=== PATIENT | male | born 1950 | race Caucasian/White ===

== ENCOUNTER 2017-10-24 14:21 | Outpatient (CLI) | payer MEDICARE, BC ==
[2017-10-24 16:11] LABS: #Basophils 0.1 thou/uL (0.0-0.2); #Eosinphils 0.1 thou/uL (0.0-0.7); #Lymphocytes 1.8 thou/uL (1.20-3.40); #Monocytes 0.3 thou/uL (0.11-0.59); #Neutrophils 3.3 thou/uL (1.40-6.50); %Basophils 1.4 % (0.0-1.0); %Eosinophils 2.4 % (0.0-10.0); %Lymphocytes 31.5 % (21.0-51.0); %Monocytes 6.1 % (0.0-10.0); %Neutrophils 58.6 % (42.0-75.0); Hemoglobin 14.8 g/dL (14.0-18.0); Mean Corpuscular HGB CONC 32.2 g/dL (32.0-36.0); Mean Corpuscular Hemoglobin 31.1 pg (27.0-31.0); Mean Corpuscular Volume 96.5 fl (80.0-94.0); Mean Platelet Volume 7.9 fL (7.4-10.4); Platelet Count 179 thou/uL (130-400); RBC Distribution Width 13.1 % (11.5-14.5); Red Blood Cell (RBC) Count 4.75 mill/uL (4.70-6.10); White Blood Cell (WBC) Count 5.6 thou/uL (4.8-10.8)
[2017-10-24 16:38] LABS: Anion Gap 13 mmol/L (10-20); BUN (Urea Nitrogen) 17 mg/dL (8.4-25.7); Calc. Creatinine Clearance 0 mL/min (70-130); Carbon Dioxide 23 mmol/L (23-31); Chloride 108 mmol/L (98-107); Estimated GFR-MDRD Greater than 90; Glucose 75 mg/dL (80-115); Potassium 3.8 mmol/L (3.5-5.1); Sodium 140 mmol/L (136-145)
== END 2017-10-24 14:22 | disposition home or self-care (01) ==
LOC: LABBT 14:21
PROVIDERS: ATTEND Orthopaedic Surgery Hand Surgery
DX: Z01.818 Encounter for other preprocedural examination (principal); M72.0 Palmar fascial fibromatosis [Dupuytren]
CPT/HCPCS: 80048; 85025; 85730; 93005; 93010

== ENCOUNTER 2017-11-06 08:13 | Day surgery (SDC) | payer MEDICARE, BC ==
[2017-10-24 14:34] VITALS: BMI 38.0
[2017-11-06] MEDS ORDERED: Lidocaine 1% PF 5 ML VIAL ONE (12:55)
[2017-11-06] MEDS ORDERED: Ketorolac Tromethamine 30 MG/ML VIAL ONE (12:55)
[2017-11-06] MEDS ORDERED: Ondansetron HCl/PF 4 MG/2 ML Vial ONE (12:55)
[2017-11-06] MEDS ORDERED: ePHEDrine/0.9% NaCl/PF SYRINGE 50 mg/10 ml ONE (12:55)
[2017-11-06] MEDS ORDERED: Propofol 200 MG/20 ML VIAL ONE (12:55)
[2017-11-06] MEDS ORDERED: Fentanyl 100 MCG/2 ML VIAL ONE (12:58)
[2017-11-06] MEDS ORDERED: Midazolam HCl 2 mg/2 ml Vial ONE (12:58)
[2017-11-06] MEDS ORDERED: Bacitracin Zinc Ointment 30 gm TUBE ONE (13:04)
[2017-11-06] MEDS ORDERED: Bupivacaine PF 0.5% 30 ML VIAL ONE (13:04)
[2017-11-06] MEDS ORDERED: CEFAZOLIN/Water 2 GM/20 ML SYRINGE ONE (13:38)
[2017-11-06] MEDS ORDERED: Thrombin 5000 UNITS/5 ML VIAL ONE (14:17)
--- NOTE | 2017-11-07 06:28 | OP ---
DATE OF SURGERY: 11/06/2017 PREOPERATIVE DIAGNOSIS: Right ring finger, middle finger and index finger Dupuytren's contracture. POSTOPERATIVE DIAGNOSES: Very small but thick cord on the index finger, but a very thick cord causin g great contraction of 80 degrees at the MP joint and 4 degrees PIP joint of the middle finger. Ther e is also clot, would both radial and ulnar nerves and almost a candy cane configuration crossing the midline to the opposite side over each other in this configuration. PROCEDURES PERFORMED: 1. Right ring finger radial digital nerve neuroplasty. 2. Right ring finger ulnar digital nerve neuroplasty. 3. Right ring finger, middle finger and index finger subtotal palmar fasciectomy. SPECIMENS: Dupuytren's cord. TOURNIQUET TIME: 93 minutes. ESTIMATED BLOOD LOSS: 10 mL. SURGEON: Patel Cleveland MD ANESTHESIA: General LMA technique augmented with 25 mL of 0.5% Marcaine block. No epinephrine. DESCRIPTION OF PROCEDURE: After the patient had successful anesthesia listed above, because he was o n long-term anticoagulation, he had limb prepped and draped. Timeout was accomplished, it was approp riate. We then first approached the index finger with a Micky incision approximately 2.5 to 3 cm long, foll owed the digital nerves proximal to it, did a neuroplasty and them from the overlying mass, which was a very thick short cord with a large dimple. We removed the mass. The neurovascular bund le was intact. This wound was left open. Then, we approached the ring finger and middle finger cord, but the ring f anya was most involved, so zigzag incision was centered on this cord. Beginning proximally, we sepa rated the cord from soft tissue. Once the cord was exposed, then we went back to the proximal aspect , neurovascular bundles and followed it and it was approximately at the level of the greate st contracture, just over the MP joint where the radial digital nerve went midline to the ulnar side crossing superficial to the ulnar digital nerve and both of them crossed over each other at this poin t. We then performed very careful neuroplasty slowing at this point, so magnification would allow us to maintain the neurovascular bundle, which we did without complication. A completely charito rovascular bundle from the cord, the cord which had its terminal end on the ring finger at just distal to the A3 kyle and it. We then dissected it back carefully all way to transv erse carpal ligament distal edge. Once we , tourniquet was deflated. Hemostasis obtained. We had excellent circulation, all digits were pink equally and had the same 1 second refill. Placed Celestone over the bed, closed both wounds using the Micky incision to close to cover any defect cr eated by the skin over the central middle finger and ring finger and index finger closed well with th e same 4-0 nylon interrupted simple pattern. Bulky dressing was applied. He had a total injection o f 25 mL with 10 given before and 15 after. He left the operating room with pink digits and the finge rs extended with a palmar splint 0 at all joints.
== END 2017-11-06 19:03 | disposition home or self-care (01) ==
LOC: SDC 08:13
PROVIDERS: ATTEND Orthopaedic Surgery Hand Surgery
PROC: 01Q60ZZ Repair Radial Nerve, Open Approach (ICD-10-PCS; principal; 2017-11-06)
PROC: 01Q40ZZ Repair Ulnar Nerve, Open Approach (ICD-10-PCS; 2017-11-06)
PROC: 0JNJ0ZZ Release Right Hand Subcutaneous Tissue and Fascia, Open Approach (ICD-10-PCS; 2017-11-06)
PROC: 0LN70ZZ Release Right Hand Tendon, Open Approach (ICD-10-PCS; 2017-11-06)
DX: M72.0 Palmar fascial fibromatosis [Dupuytren] (principal); Z98.1 Arthrodesis status; Z98.84 Bariatric surgery status; Z90.49 Acquired absence of other specified parts of digestive tract; Z98.890 Other specified postprocedural states
CPT/HCPCS: 88304; J2250; J3010; S0020

== ENCOUNTER 2018-01-26 20:47 | Observation (INO) | payer MEDICARE, BC ==
[~2018-01-26 20:47] MED LIST: ISOVUE-370 76%-LOCM 1 ML ONE
[2018-01-26] MEDS ORDERED: Morphine 4 MG/ML VIAL ONE (21:17)
--- NOTE | 2018-01-26 21:24 | RAD ---
SINGLE VIEW OF THE CHEST: 01/26/18 COMPARISON: 11/18/16 HISTORY: Chest pain status post fall. FINDINGS: Single view of the chest shows a normal sized cardiomediastinal silhouette. There is no evidence of c onsolidation, mass, or pleural effusion. The bones are unremarkable. IMPRESSION: No evidence of acute cardiopulmonary disease. POS: [facility]
[2018-01-26 21:35] LABS: #Eosinphils 0.1 thou/uL (0.0-0.7); #Lymphocytes 1.2 thou/uL (1.20-3.40); #Monocytes 0.7 thou/uL (0.11-0.59); %Basophils 0.4 % (0.0-1.0); %Eosinophils 0.6 % (0.0-10.0); %Lymphocytes 13.4 % (21.0-51.0); %Monocytes 7.6 % (0.0-10.0); Hemoglobin 14.6 g/dL (14.0-18.0); Mean Corpuscular HGB CONC 32.8 g/dL (32.0-36.0); Mean Corpuscular Hemoglobin 30.6 pg (27.0-31.0); Mean Corpuscular Volume 93.2 fl (80.0-94.0); Mean Platelet Volume 7.5 fL (7.4-10.4); Platelet Count 163 thou/uL (130-400); RBC Distribution Width 13.1 % (11.5-14.5); Red Blood Cell (RBC) Count 4.76 mill/uL (4.70-6.10)
[2018-01-26 21:42] LABS: INR-International Normal Ratio 1.2; PTT 26.4 SEC (22.9-36.1); Prothrombin Time 15.6 SEC (12.0-14.7)
[2018-01-26 21:54] LABS: Anion Gap 14 mmol/L (10-20); BUN (Urea Nitrogen) 21 mg/dL (8.4-25.7); Calc. Creatinine Clearance 0 mL/min (70-130); Calcium 8.7 mg/dL (7.8-10.44); Carbon Dioxide 23 mmol/L (23-31); Chloride 107 mmol/L (98-107); Estimated GFR-MDRD 70; Glucose 148 mg/dL (80-115); Sodium 140 mmol/L (136-145)
--- NOTE | 2018-01-26 22:48 | CT ---
CT OF THE CHEST WITH CONTRAST CT OF THE THORACIC SPINE WITH CONTRAST 01/26/18 HISTORY: Patient fell at a football game and landed on the right side. The patient complains of right rib pain and shortness of breath after the fall. Patient also reports back pain. TECHNIQUE: 1. Multiple contiguous axial images were obtained in a CT of the chest with contrast. Coronal re formats were performed. 2. A limited CT of the thoracic spine was performed. Sagittal and coronal reformats were created based off images obtained in the chest CT. FINDINGS: CT CHEST: There are minimally displaced fractures of the right posterior 7th and 8th ribs. No underlying pneumo thorax or pleural effusion are seen. No other rib fractures are present. No focal infiltrates or susp icious masses are seen in the lungs. The heart is normal in size without focal cardiac abnormality. N o hilar or mediastinal lymphadenopathy are seen. Postsurgical changes are seen in the stomach. There are hypodensities in the left kidney measuring up to 2.1 cm in size, which likely represents cysts. The other visualized subdiaphragmatic structures a re unremarkable. Degenerative changes are seen in the spine. The chest wall soft tissues are unremarkable. Limited CT of the thoracic spine. There are multiple bridging osteophytes throughout the thoracic spi ne consistent with DISH. There is no evidence of acute fracture or subluxation. IMPRESSION: 1. Right posterior 7th and 8th rib fractures with underlying intrathoracic abnormality. 2. No evidence of acute osseous abnormality of the thoracic spine. POS: [facility]
[2018-01-27] MEDS ORDERED: Acetaminophen 1,000 MG in Premix Bag 1 BAG IVPB SCH (02:06)
[2018-01-27] MEDS ORDERED: traMADol HCl 50 MG TAB PO PRN (02:06)
[2018-01-27] MEDS ORDERED: Dextrose 50% Abboject 50 ML SYRINGE SLOW IVP PRN (02:06)
[2018-01-27] MEDS ORDERED: Cyclobenzaprine 10 MG TAB PO PRN ×2 (02:06→02:30)
[2018-01-27] MEDS ORDERED: Ketorolac Tromethamine 15 MG/ML VIAL IVP SCH (02:06)
[2018-01-27] MEDS ORDERED: Ondansetron HCl/PF 4 MG/2 ML Vial IVP PRN (02:06)
[2018-01-27] MEDS ORDERED: Dextrose 5% in Water 1,000 ML IV PRN (02:06)
[2018-01-27] MEDS ORDERED: Ondansetron ODT 4 MG TAB PO PRN (02:06)
[2018-01-27] MEDS ORDERED: Rib Fracture Protocol PO SCH (02:06)
[2018-01-27] MEDS ORDERED: hydrALAZINE 20 MG/ML VIAL SLOW IVP PRN (02:06)
[2018-01-27] MEDS ORDERED: Acetaminophen 500 MG TAB PO PRN (02:06)
[2018-01-27] MEDS ORDERED: traMADol HCl 50 MG TAB PO SCH (02:06)
[2018-01-27 04:51] LABS: #Eosinphils 0.1 thou/uL (0.0-0.7); #Lymphocytes 1.5 thou/uL (1.20-3.40); #Monocytes 0.6 thou/uL (0.11-0.59); #Neutrophils 3.6 thou/uL (1.40-6.50); %Basophils 0.6 % (0.0-1.0); %Eosinophils 1.4 % (0.0-10.0); %Lymphocytes 26.5 % (21.0-51.0); %Monocytes 9.5 % (0.0-10.0); %Neutrophils 61.9 % (42.0-75.0); Hemoglobin 13.4 g/dL (14.0-18.0); Mean Corpuscular HGB CONC 33.3 g/dL (32.0-36.0); Mean Corpuscular Hemoglobin 31.5 pg (27.0-31.0); Mean Corpuscular Volume 94.5 fl (80.0-94.0); Mean Platelet Volume 8.2 fL (7.4-10.4); Platelet Count 150 thou/uL (130-400); Red Blood Cell (RBC) Count 4.26 mill/uL (4.70-6.10); White Blood Cell (WBC) Count 5.8 thou/uL (4.8-10.8)
[2018-01-27 05:08] LABS: Anion Gap 7 mmol/L (10-20); BUN (Urea Nitrogen) 19 mg/dL (8.4-25.7); Calc. Creatinine Clearance 0 mL/min (70-130); Calcium 8.5 mg/dL (7.8-10.44); Carbon Dioxide 28 mmol/L (23-31); Chloride 108 mmol/L (98-107); Estimated GFR-MDRD Greater than 90; Glucose 105 mg/dL (80-115); Sodium 139 mmol/L (136-145)
[2018-01-27] MEDS ORDERED: Ibuprofen 800 MG TAB PO SCH ×2 (06:00→09:00)
[2018-01-27] MEDS ORDERED: Levothyroxine Sodium 100 MCG TAB PO SCH (06:00)
--- NOTE | 2018-01-27 06:01 | HP ---
DATE OF ADMISSION: 01/27/2018 REQUESTING PHYSICIAN: Dr. Smith. ATTENDING SURGEON: Dr. Faye. HISTORY OF PRESENT ILLNESS: The patient is a 67-year-old man who was at the [employer] this afternoon when he was in the bleachers and tripped over a small lip of concrete on a ramp falling on his right side. The patient struck his right elbow and right chest on the ground. Denies hitting his head. No loss of consciousness, did not have any shortness of breath, dizziness or any syncopal type symptoms prior to his falling. The patient went home for a very short period of time; when the pain increased, he came to the emergency room and underwent evaluation and examination and o n CT, it was noted to have 2 posterior rib fractures, at which time we were asked to admit the patien t for pain control. ALLERGIES: None. CURRENT MEDICATIONS: Primidone, Synthroid, Avodart, Flomax, meloxicam, Travatan ophthalmic drops, Xa relto and Cosopt ophthalmic drops. PAST MEDICAL HISTORY: Hypertension, hypothyroidism, recurrent "blood clots." PAST SURGICAL HISTORY: Bone graft of left wrist, thoracic spine diskectomy, melanoma excision from l eft shoulder, detached retina repair of left eye, cataract surgery and lens implant on the left eye, IVC filter placement, permanent cholecystectomy, gastric bypass, tonsillectomy, left hip replacement, bilateral knee replacement. SOCIAL HISTORY: Patient denies drug, alcohol or tobacco use. The patient lives at home with his wif e. FAMILY MEDICAL HISTORY: Hypertension. REVIEW OF SYSTEMS: Ten point review of systems is negative as otherwise stated. PHYSICAL EXAMINATION: VITAL SIGNS: Blood pressure 111/60, heart rate 70, respirations at 16, oxygen saturation 97% on room air, temperature is 98.7. GENERAL: The patient is resting comfortably in bed. He is alert and oriented x3. Winston coma scal e is 15. HEENT: Head is normocephalic, atraumatic. Eyes: Extraocular motions intact. PERRLA bilaterally. There is definite change in the left compared to the right, consistent with his surgical history. Ea rs, atraumatic without discharge. Nose is atraumatic without discharge. Oropharynx is clear. NECK: Nontender. Trachea is midline. No JVD. CHEST: Clear to auscultation with moderate inspiratory and expiratory effort which the patient state s that his pain increases when he takes a deep breath. HEART: Regular rate and rhythm. ABDOMEN: Soft, flat, nontender with active bowel sounds. Pelvis is stable. EXTREMITIES: Neurovascularly intact x4. Right elbow shows small abrasion on the lateral aspect. BACK: Nontender to midline, but does have tenderness to palpation on the right side consistent with his 2 posterior rib fractures. LABORATORY DATA: White blood cell count 9.0, hemoglobin 14.6, hematocrit 44.4, platelets 163. Sodiu m 140, potassium 4.0, chloride 107, CO2 is 23, BUN 21, creatinine 1.05, glucose 148, PTT 26, PT 16, I NR 1.2. RADIOGRAPHS: AP chest shows no evidence of acute cardiopulmonary disease. CT of the chest and T spi ne with IV contrast shows right posterior 7th and 8th rib fractures without underlying intrathoracic abnormality and no acute evidence of abnormality of the thoracic spine. ASSESSMENT AND PLAN: 1. Status post ground-level fall. 2. Right 7th and 8th rib fractures. 3. Pain secondary to acute trauma. 4. History of hypercoagulable state. 5. History of hypertension. 6. History of recurrent urinary retention. Plan will be to admit the patient to surgical floor for observation, pain control. We will resume al l of his home medications. Pulmonary toilet, gastritis, mechanical thrombosis prophylaxis. The eval uation examination, radiographic and laboratory findings will be discussed with Dr. Faye after thi s dictation.
[2018-01-27] MEDS: Acetaminophen 500 MG TAB PO SCH ×2 (06:26→12:14)
[2018-01-27] MEDS: traMADol HCl 50 MG TAB PO SCH ×2 (06:27→12:15)
[2018-01-27 06:57] VITALS: BMI 39.2
[2018-01-27] MEDS ORDERED: Famotidine 20 MG TAB PO SCH (09:00)
[2018-01-27] MEDS ORDERED: Dorzolamide HCl/Timolol Maleate 2%/0.5% Ophth Soln 10 ml Bottle R EYE SCH ×2 (09:00)
[2018-01-27] MEDS ORDERED: Rivaroxaban 10 MG TAB PO SCH (09:00)
[2018-01-27] MEDS ORDERED: Gabapentin 300 MG CAP PO SCH (09:00)
[2018-01-27] MEDS ORDERED: Tamsulosin HCl 0.4 MG CAP PO SCH (09:00)
[2018-01-27] MEDS ORDERED: Dutasteride 0.5 MG CAP PO SCH (09:00)
[2018-01-27] MEDS: Primidone 250 MG TAB PO SCH ×2 (09:38→12:15)
--- NOTE | 2018-01-27 10:00 | RAD ---
AP VIEW CHEST: HISTORY: A 67-year-old with a history of fall and chest pain. FINDINGS: AP view chest demonstrates mild pulmonary vascular congestion. No evidence of effusions, pneumonia, or pneumothorax seen. IMPRESSION: Unremarkable AP view chest. POS: [facility]
[2018-01-27 11:56] VITALS: BP 121/73; TEMP 98
[2018-01-27] MEDS ORDERED: Latanoprost 0.005% Ophth Soln 2.5 ml Bottle R EYE SCH (21:00)
--- NOTE | 2018-01-27 21:20 | DIS ---
DATE OF ADMISSION: 01/27/2018 DATE OF DISCHARGE: 01/27/2018 ADMISSION DIAGNOSES: 1. Status post ground level fall. 2. Right posterior 7th and 8th rib fractures. 3. Pain secondary to acute trauma. 4. Multiple comorbidities to include blood thinner use. CONSULTATIONS: None. PROCEDURES: None. SUMMARY: The patient is a 67-year-old man who was at the [email or web address] when he tripped over a ramp and fell on his right side. The patient was able to tolerate sitting through the game and then went home and when he sneezes, he had increased pain and was brought to the Emergency Department and he underw ent evaluation and examination and was noted to have the above injuries. We were asked to admit the patient for pain control overnight. He did extremely well this morning. He was able to draw 3000 on his incentive spirometry. His pain was easily controlled with nonnarcotic pain medicine and one dos e of tramadol. Chest x-ray in the morning was unremarkable. Labs were stable. The patient was able to be discharged home and will follow up with the trauma clinic in 2 weeks or sooner as needed.
--- NOTE | 2018-01-28 08:43 | ADD-HP ---
ADDENDUM To the addendum dictated by Fausto Borja, Trauma PA. For full details, please see his H and P the details of which I have personally confirmed. In summar y, Mr. Shook is a 67-year-old man who tripped on a ramp falling onto his right chest and elbow. No loss of consciousness or other injuries. He was noted to have 2 posterior rib fractures and was admi tted for pain control, but was refusing pain medication from the nurses last night. This morning, he is feeling good and breathing well. He is using his incentive spirometer as instructed. PHYSICAL EXAMINATION: GENERAL: He is moving air well with equal breath sounds bilaterally. Vital signs are normal. HEART: Regular, without murmurs, rubs or gallops. CHEST: He is tender to palpation in the right chest and has an abrasion on his elbow, but no other s ignificant findings on exam. LABORATORY DATA: No significant abnormalities on his lab work. ASSESSMENT: Right posterior rib fractures, refusing IV medication and breathing well with good room air O2 sats. He will be discharged home with instructions to follow up in the trauma clinic as miguel ángel iraheta, signs and symptoms of pneumothorax were discussed with the patient. He knows to seek immediate he lp if these occur.
== END 2018-01-27 14:44 | disposition home or self-care (01) ==
LOC: ERS 20:47 → SURG A 01-27 01:05
PROVIDERS: ADMIT Surgery; ATTEND Surgery
DX: S22.41XA Multiple fractures of ribs, right side, initial encounter for closed fracture (principal); G89.11 Acute pain due to trauma; W10.2XXA Fall (on)(from) incline, initial encounter; I10 Essential (primary) hypertension; E03.9 Hypothyroidism, unspecified; Z79.01 Long term (current) use of anticoagulants; Z79.899 Other long term (current) drug therapy; Z98.84 Bariatric surgery status; Z98.42 Cataract extraction status, left eye; Z96.1 Presence of intraocular lens; Z96.653 Presence of artificial knee joint, bilateral; Z96.642 Presence of left artificial hip joint; Z95.828 Presence of other vascular implants and grafts; Z90.49 Acquired absence of other specified parts of digestive tract; Z90.89 Acquired absence of other organs; Z98.890 Other specified postprocedural states
CPT/HCPCS: 71045 ×2; 71260; 80048 ×2; 85025 ×2; 85610; 85730; 86850; 86900; 86901; 93005; 96374; 97139; 99285; G0378; 36415; J2270

== ENCOUNTER 2019-03-17 13:38 | Outpatient (CLI) | payer MEDICARE, BC ==
--- NOTE | 2019-03-17 15:12 | RAD ---
RADIOGRAPH LUMBAR SPINE 2 VIEWS: DATE: 03/17/2019 HISTORY: 68-year-old male with lumbar spondylosis, back pain, fall from horse, trauma FINDINGS: AP and lateral standing views 5 lumbar-type vertebrae. Minimal anterior wedging of L2, L3, probably chronic. Flowing ventral osteop hytes at lower thoracic spine and upper lumbar spine consistent with DISH. High-grade DJD of facet joints at lower levels. IVC filter. Mild to moderate disc space narrowing at L4-5 and L5-S1. IMPRESSION: Lumbar spondylosis with high-grade lower level facet osteoarthrosis
--- NOTE | 2019-03-17 15:19 | CT ---
CT lumbar spine noncontrast: 03/17/2019 HISTORY: 68-year-old male with lumbar spondylosis, chronic low back pain 5 lumbar-type vertebrae. 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 Otherwise, vertebral body heights are maintained. Flowing ventral osteophytes at lower thoracic spine and upper lumbar spine consistent wit h DISH. No high-grade scoliosis. There is an IVC filter. T12-L1: No central or neural foraminal stenosis L1-2: No central or neural foraminal stenosis L2-3: Mild to moderate right facet DJD. Moderate left facet DJD. No high-grade central stenosis. No h igh-grade neural foraminal stenosis. Disc space maintained. L3-4: Degenerative retrolisthesis of L3 on L4. Disc space maintained. Diffuse disc bulge. Mild to mod erate ligamentum flavum thickening. Moderate left facet DJD. Severe right facet DJD. Mild to moderate central stenosis. Moderate bilateral neural foraminal stenosis. L4-5: Disc space maintained. Moderate ligamentum flavum thickening. Severe right degenerative facet h ypertrophy. Severe left degenerative facet hypertrophy, less than on the right. Severe central spinal canal stenosis. Diffuse disc bulge. Severe left neural foraminal stenosis. Moderate to severe right neural foraminal stenosis. L5-S1: Disc space maintained. Severe bilateral facet degenerative hypertrophy. No central stenosis. M ild to moderate left neural foraminal stenosis. No right-sided neural foraminal stenosis. IMPRESSION: 1. Lumbar spondylosis, including multilevel severe facet osteoarthrosis. 2. Severe central spinal canal stenosis at L4-5. 3. High-grade neural foraminal stenosis at lower levels, worst on the left at L4-5, severe.
== END 2019-03-17 13:39 | disposition home or self-care (01) ==
LOC: BICCT 13:38
PROVIDERS: ATTEND Family Medicine
DX: M47.816 Spondylosis without myelopathy or radiculopathy, lumbar region (principal); M51.9 Unspecified thoracic, thoracolumbar and lumbosacral intervertebral disc disorder; M48.061 Spinal stenosis, lumbar region without neurogenic claudication
CPT/HCPCS: 72100; 72131

== ENCOUNTER 2019-04-20 15:16 | Inpatient (IN) | payer MEDICARE, BC ==
--- NOTE | 2019-04-20 15:57 | RAD ---
RADIOGRAPH CHEST 1 VIEW: DATE: 04/20/2019 TIME: 3:46 PM HISTORY: 68-year-old male with traumatic right chest pain due to fall. COMPARISON: 01/27/2018 FINDINGS: There is a new finding of right infrahilar very irregularly-shaped approximately 5 cm opacity. The ri ght upper lobe and the left lung are clear. No cardiomegaly or pneumothorax. No effacement of lateral costophrenic angles. No pneumothorax. IMPRESSION: Right infrahilar masslike opacity: Pneumonia versus primary lung cancer.
[2019-04-20 16:06] LABS: Hemoglobin 14.8 g/dL (14.0-18.0); Mean Corpuscular HGB CONC 32.7 g/dL (32.0-36.0); Mean Corpuscular Volume 94.8 fL (78.0-98.0); Mean Platelet Volume 9.2 fL (7.4-10.4); Platelet Count 166 thou/uL (130-400); RBC Distribution Width 14.8 % (11.5-14.5); Red Blood Cell (RBC) Count 4.78 mill/uL (4.70-6.10); White Blood Cell (WBC) Count 20.6 thou/uL (4.8-10.8)
[2019-04-20 16:17] LABS: Band 21 % (5-11); Lymphocytes 1 % (21-51); MDiff Complete? YES; Monocytes 2 % (0-10); Neutrophil 76 % (42-75); Platelet Morphology Comment Appears Adequate; RBC Morphology Normal
[2019-04-20 16:23] LABS: Bacteria/HPF 1+ HPF (None Seen); Bilirubin Negative (Negative); Blood, Urine Negative (Negative); Clarity Clear (Clear); Glucose, Urine (Dipstick) Normal (Negative); Leukocyte Negative Leu/uL (Negative); Nitrite Negative (Negative); Protein, Urine (Dipstick) 30 mg/dL (Neg-Trace); RBC/HPF 0-3 HPF (0-3); Squamous Epithelial 0-3 HPF (0-3); Urobilinogen Normal mg/dL (Less than 2); WBC/HPF 0-3 HPF (0-3)
[2019-04-20] MEDS ORDERED: Piperacillin/Tazobactam 4.5 GM VIAL ONE (17:04)
[2019-04-20] MEDS ORDERED: Fentanyl 100 MCG/2 ML VIAL ONE (17:04)
[2019-04-20] MEDS ORDERED: Sodium Chloride 0.9% 100 ML ONE (17:04)
[2019-04-20 17:14] LABS: Albumin 3.7 g/dL (3.4-4.8)
[2019-04-20 17:15] LABS: Calcium 8.6 mg/dL (7.8-10.44); Chloride 106 mmol/L (98-107); Potassium 4.2 mmol/L (3.5-5.1); Sodium 139 mmol/L (136-145)
[2019-04-20 17:16] LABS: Glucose 125 mg/dL (80-115)
[2019-04-20 17:17] LABS: Protein, Total 6.7 g/dL (5.8-8.1)
[2019-04-20 17:18] LABS: Anion Gap 14 mmol/L (10-20); Bilirubin, Total 0.6 mg/dL (0.2-1.2); Carbon Dioxide 23 mmol/L (23-31)
[2019-04-20 17:19] LABS: Alkaline Phosphatase 122 U/L (40-150)
[2019-04-20 17:20] LABS: BUN (Urea Nitrogen) 26 mg/dL (8.4-25.7); Calc. Creatinine Clearance 0 mL/min (70-130); Estimated GFR-MDRD 71
[2019-04-20 17:21] LABS: AST (SGOT) 43 U/L (5-34)
[2019-04-20 17:22] LABS: ALT (SGPT) 83 U/L (8-55); Lipase 15 U/L (8-78)
--- NOTE | 2019-04-20 19:01 | CT ---
Exam: CT angiogram of the chest HISTORY: Chest pain. COMPARISON: 11/18/2016 TECHNIQUE: CT angiogram of the chest is performed in the axial plane. Three-dimensional reformatted i mages are submitted for interpretation FINDINGS: Mediastinum: No mass, lymphadenopathy or hematoma. HEART: Normal size. No significant pericardial fluid. Aorta: Suboptimal evaluation due to timing of contrast bolus. No aneurysm, dissection or periaortic f at stranding Upper solid abdominal viscera: Exophytic, intraparenchymal and pelvic cyst in the left kidney, incomp letely evaluated. There is evidence of previous bariatric surgical change. Trachea and central bronchi: Patent Pleural spaces: No significant pericardial fluid. Lung parenchyma: Multifocal groundglass opacities in the right upper lobe, right lower lobe and middl e lobe. No significant groundglass opacification in the left lung. Pneumothorax: None Osseous structures: No lytic or blastic lesions multisegment osteophyte formation suggesting DISH Pulmonary arteries: Adequate contrast opacification pulmonary arterial system to the level of lobar a rteries. No filling defect to suggest pulmonary embolism. Limited evaluation of the segmental and subsegmental arteries. There is extensive venous collaterals in the left axilla left neck which may be secondary to thrombos is of the left subclavian vein. Limited evaluation on this examination. IMPRESSION: 1. Probably right lung groundglass opacities which may be due to edema or infiltrate. 2. No evidence of pulmonary artery embolism to the level of the lobar arteries. Limited evaluation of the segmental and subsegmental arteries due to technique 3. Extensive venous collaterals in the right hemithorax and right neck which may be due to narrowing or occlusion of the right subclavian vein, incompletely evaluated. Nonemergent right upper extremity venogram can be performed. Transcribed Date/Time: 04/20/2019 7:27 PM
[2019-04-20] MEDS ORDERED: Azithromycin 250 MG TAB ONE (19:13)
[2019-04-20 20:34] LABS: Lactic Acid 1.7 mmol/L (0.5-2.2)
[2019-04-20] MEDS ORDERED: Acetaminophen 325 MG TAB PO PRN ×2 (21:15→22:06)
[2019-04-20] MEDS ORDERED: Ondansetron PF 4 MG/2 ML Vial IVP PRN (22:06)
[2019-04-20] MEDS ORDERED: Bisacodyl 10 MG SUPP PR PRN (22:06)
[2019-04-20] MEDS ORDERED: Guaifenesin DM 100-10/5 ML UDCUP PO PRN (22:06)
[2019-04-20] MEDS ORDERED: Senokot S 8.6-50 MG TAB PO PRN (22:06)
[2019-04-20 23:00] LABS: INR-International Normal Ratio 1.5; PTT 32.1 SEC (22.9-36.1); Prothrombin Time 17.6 SEC (12.0-14.7)
[2019-04-20] MEDS: cefTRIAXone\\ROCEPHIN 1 GM in Sodium Chloride 0.9% 100 ML IVPB SCH (23:00)
[2019-04-21 00:39] VITALS: BMI 41.2
--- NOTE | 2019-04-21 02:21 | HP ---
REASON FOR ADMISSION: Sepsis, right lung pneumonia. HISTORY OF PRESENTING ILLNESS: The patient gives history of having tripped and falling while he was trying to walk his dog on Sunday. He fell and hit his right side of his chest. Last night around 1:00 am, the patient started to have intractable cough. took his temperature, it was 101.6 yesterday morning. Has no altered sputum. The patient states he has had multiple pneumonias in his life and has no history of asthma or COPD. Last pneumonia was in October of this year. 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 No complaints of palpitations, PND, or orthopnea. He normally ambulates by himself. PAST MEDICAL AND SURGICAL HISTORY: History of protein S deficiency with history of multiple clots in the legs and PE as well. The last clot he had was in October of 2016 with bilateral lower leg DVTs. Bilateral knee replacement, left hip replacement. Last stress test was one year back with Dr. Meredith and was negative. History of gastric bypass, hypertension, and has had cervical spine surgery, melanoma removed from left shoulder. Retinal detachment, left eye with laser repair. Cataract surgeries. History of IVC filter, cholecystectomy, gastric bypass in 2007, tonsillectomy, hypothyroidism. History of seizure disorder from childhood, on primidone. CURRENT MEDICATIONS: The patient is on: 1. Primidone 1000 mg daily. 2. Synthroid 75 mcg daily. 3. Avodart 0.5 mg p.o. daily. 4. Flomax 0.4 mg p.o. daily. 5. Xarelto 20 mg daily. 6. Meloxicam 15 mg p.o. daily. 7. Metoprolol extended release 100 mg daily. 8. Metformin extended release 500 mg p.o. 2 tablets daily. 9. Colestipol 1 g twice daily. 10. Travatan eye drops to the right eye at bedtime. 11. Cosopt 1 drop to the right eye 2 times daily. 12. Multivitamin one tablet daily. ALLERGIES: NO KNOWN DRUG ALLERGIES. PERSONAL HISTORY: Does not abuse alcohol or drugs. No history of smoking. He lives with his . FAMILY HISTORY: Multiple family members with protein S deficiency, it is mostly on the maternal side. Mother is living, she is 88 years old and is in retirement at present. Father at the age of 72 years, he has had history of lymphoma and coronary artery disease. Two brothers and 3 children all have history of likely protein S deficiency and blood clots. CODE STATUS: Full. Power of power of estate attorney is his . REVIEW OF SYSTEMS: CONSTITUTIONAL: Negative for weight loss or gain, ability to conduct usual activities. SKIN: Negative for rash, itching. EYES: Negative for double vision, pain. ENT/MOUTH: Negative for nose bleeding, neck stiffness, pain, tenderness. CARDIOVASCULAR: Negative for palpitations, dyspnea on exertion, orthopnea. RESPIRATORY: Negative for shortness of breath, wheezing, cough, hemoptysis, fever or night sweats. GASTROINTESTINAL: Negative for poor appetite, abdominal pain, heartburn, nausea , vomiting, constipation, or diarrhea. GENITOURINARY: Negative for urgency, frequency, dysuria, nocturia. MUSCULOSKELETAL: Negative for pain, swelling. NEUROLOGIC/PSYCHIATRIC: Negative for anxiety, depression. ALLERGY/IMMUNOLOGIC: Negative for skin rash, bleeding tendency. PHYSICAL EXAMINATION: GENERAL: The patient is a 68-year-old male, who is currently not in any acute distress. VITAL SIGNS: Blood pressure 92/58 on arrival, pulse is 98 per minute, respiratory rate 20 per minute, temperature 99.4 degrees Fahrenheit on arrival, saturating 97% on room air. NECK: Supple. No elevated JVD. HEENT: Eyes; extraocular muscles intact. Pupils reacting to light. Oral cavity, mucous membranes are dry. No exudates or congestion. CARDIOVASCULAR: S1 and S2 heard. Regular rhythm. RESPIRATORY: Air entry 1+ bilateral. There are coarse rales on the right half of lung field. No wheezes. ABDOMEN: Soft. Bowel sounds heard. No tenderness, rigidity, or guarding. EXTREMITIES: No peripheral edema or calf tenderness. VASCULAR SYSTEM: Peripheral pulses 1+ bilateral. No ischemic ulcerations or gangrene. CENTRAL NERVOUS SYSTEM: No gross focal motor deficits noted. The patient is alert, awake, oriented well. PSYCHIATRIC: The patient's mood is euthymic. No hallucinations or delusions. LABORATORY DATA: White count of 20, H and H 14 and 45, platelet count is 166 with 76% neutrophils. PT/INR 17 and 1.5, PTT 32, BUN 26, creatinine 1.0, serum glucose 125. Lactic acid 2.3. AST/ALT 43 and 83, total bilirubin 0.6, alkaline phosphatase 122. Troponin x1 less than 0.01. Albumin is 3.7. CT angio chest done shows right lung ground-glass opacities which may be due to edema or infiltrate. No evidence of PE seen. Extensive venous collaterals in the right hemithorax and right neck which may be due to narrowing or occlusion of right subclavian vein. EKG done shows sinus tach at 104 beats per minute with poor R-wave progression. CLINICAL IMPRESSION AND PLAN: The patient will be admitted to medical floor for right lung pneumonia. The patient is also on Xarelto and has had a history of fall on Sunday and it is unclear if he has pulmonary injury with alveolar hemorrhage versus lung contusion. We will obtain consultation with Dr. Ortega for Pulmonology. 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 He will be on ceftriaxone and Zithromax. DuoNeb q.6 hourly. We will continue his home dose of Flomax, multivitamin, levothyroxine, latanoprost, Avodart, dorzolamide with timolol eye drops as before. Blood and urine cultures will be obtained. We will continue to closely monitor him on medical floor. If the patient were to worsen, he will be transferred to [facility]. The code status is full. Power of estate attorney is his . Please note I have seen and examined patient on 2018. Job ID: [id number]
[2019-04-21] MEDS: Levothyroxine Sodium 100 MCG TAB PO SCH (05:37)
[2019-04-21 05:38] LABS: #Eosinphils 0.2 thou/uL (0.0-0.7); #Lymphocytes 1.6 thou/uL (1.20-3.40); #Monocytes 0.8 thou/uL (0.11-0.59); %Basophils 0.2 % (0.0-1.0); %Eosinophils 1.2 % (0.0-10.0); %Lymphocytes 10.3 % (21.0-51.0); %Monocytes 5.2 % (0.0-10.0); Hemoglobin 12.8 g/dL (14.0-18.0); Mean Corpuscular HGB CONC 32.2 g/dL (32.0-36.0); Mean Corpuscular Hemoglobin 30.7 pg (27.0-31.0); Mean Corpuscular Volume 95.5 fL (78.0-98.0); Mean Platelet Volume 9.2 fL (7.4-10.4); Platelet Count 153 thou/uL (130-400); RBC Distribution Width 14.6 % (11.5-14.5); Red Blood Cell (RBC) Count 4.18 mill/uL (4.70-6.10); White Blood Cell (WBC) Count 15.6 thou/uL (4.8-10.8)
[2019-04-21 05:59] LABS: Anion Gap 13 mmol/L (10-20); BUN (Urea Nitrogen) 27 mg/dL (8.4-25.7); Calc. Creatinine Clearance 105 mL/min (70-130); Calcium 8.2 mg/dL (7.8-10.44); Carbon Dioxide 25 mmol/L (23-31); Chloride 108 mmol/L (98-107); Estimated GFR-MDRD 62; Glucose 109 mg/dL (80-115); Potassium 4.5 mmol/L (3.5-5.1); Sodium 141 mmol/L (136-145)
[2019-04-21] MEDS: Tamsulosin HCl 0.4 MG CAP PO SCH (09:09)
[2019-04-21] MEDS: Famotidine 20 MG TAB PO SCH ×2 (09:09→21:09)
[2019-04-21] MEDS: Dutasteride 0.5 MG CAP PO SCH (09:09)
[2019-04-21] MEDS: Rivaroxaban 10 MG TAB PO SCH (09:09)
[2019-04-21] MEDS: traMADol HCl 50 MG TAB PO PRN ×2 (09:09→14:55)
[2019-04-21] MEDS: Primidone 250 MG TAB PO SCH (09:44)
--- NOTE | 2019-04-21 13:06 | CON ---
DATE OF CONSULTATION: 04/21/2019 CONSULTING PHYSICIAN: [facility]. REASON FOR CONSULTATION: Pneumonia. HISTORY OF PRESENT ILLNESS: Mr. Shook is a pleasant 68-year-old male, who came into the hospital with a 1-day history of cough and fever up to 101.6. He fell a couple of days ago onto his right side and sustained bruising there. I do not think any fractures were seen on radiography. He has had cough and congestion since then as well as the fever. He says he has a history of multiple episodes of pneumonia in the past. The last one was about 6 months ago in [place]. PAST MEDICAL HISTORY: 1. DVT. 2. Pulmonary embolism. 3. Lifelong anticoagulation. 4. IVC filter placement and no removal. 5. Cholecystectomy. 6. Gastric bypass. 7. Bilateral knee surgery. 8. Cholecystectomy. 9. Hypothyroidism. 10. Tonsillectomy. 11. Seizure disorder. MEDICATIONS: 1. Primidone 1000 mg daily. 2. Synthroid 75 mcg daily. 3. Avodart 0.5 mg daily. 4. Flomax 0.4 mg daily. 5. Xarelto 20 mg daily. 6. Meloxicam mg daily. 7. Metoprolol 100 mg daily. 8. Metformin extended release 500 mg two tablets twice daily. 9. Colestipol 1 g twice daily. 10. Travatan eye drops, right eye at bedtime. 11. Cosopt 1 drop, right eye two times daily. 12. Multivitamin one daily. ALLERGIES: NONE. SOCIAL HISTORY: Nonsmoker. Does not consume alcohol. FAMILY MEDICAL HISTORY: Remarkable for several family members with protein S deficiency. OCCUPATIONAL HISTORY: The patient is retired from mainly office jobs. REVIEW OF SYSTEMS: He denies any nausea, vomiting, hemoptysis, melena, hematochezia, hematuria, or dysuria. Remainder of 12-point review of systems is negative. PHYSICAL EXAMINATION: VITAL SIGNS: Temperature 98.2, pulse 70, respirations 14, O2 saturation 97%, blood pressure 133/81. GENERAL: He is awake and alert, and in no distress. HEENT: Pupils reactive. Sclerae anicteric. Oropharynx clear. No tonsils present. NECK: No adenopathy, JVD, or bruits. LUNGS: Inspiratory crackles on the right side, diffuse throughout anteriorly and posteriorly. He has tenderness to palpation, right anterior portion of his chest at the inferior costal margin. CARDIAC: S1 and S2 regular without audible murmur. ABDOMEN: Soft, nontender. Surgical scar noted in right upper quadrant, well healed. EXTREMITIES: Trace edema, bilateral lower extremities. Bilateral knee scars. NEUROLOGIC: Grossly intact throughout. SKIN: No obvious lesions. LABORATORY DATA: White blood cell count 15.6, hematocrit 39.9, and platelet count 153. INR 1.5. Sodium 141, potassium 4.5, chloride 108, CO2 of 25, BUN 27, creatinine 1.1, glucose 109. IMAGING STUDIES: CT and chest x-ray were reviewed. He has scattered infiltrative changes on the right. I did not see any occult rib fractures on the CT scan or chest x-ray. ASSESSMENT: 1. Right-sided pneumonia. 2. Right chest contusion. DISCUSSION: The patient probably developed pneumonia because of splinting from pain in his right chest. RECOMMENDATION: 1. I would recommend continued antibiotics for at least 7 days. Azithromycin and ceftriaxone/Omnicef would be appropriate. 2. Pain control. Tramadol seems to be doing a good job with that. 3. He probably will be ready to go home by tomorrow. I do not see any reason to hold his anticoagulation. Thank you for allowing me to participate in this kind gentleman's care. Job ID: [id number]
[2019-04-21] MEDS: DorzolamidE/Timolol 2%/0.5% Ophth Soln 10 ml Bottle R EYE SCH ×2 (14:45→21:56)
[2019-04-21] MEDS ORDERED: HYDROcodone/Acetaminophen 5/325 mg Tablet PO PRN (18:12)
--- NOTE | 2019-04-21 18:32 | PRG ---
DATE OF SERVICE: 04/21/2019 SUBJECTIVE: A 68-year-old male with recent fall, presented to the emergency room with fever and cough. His workup was consistent with pneumonia. He was started on broad-spectrum antibiotics. He continues to have dry cough. He denies any fever today. No chest pain, palpitations, syncope reported. REVIEW OF SYSTEMS: All other review of systems was reviewed and was found negative. CURRENT MEDICATIONS: Reviewed. The patient is on ceftriaxone, azithromycin, along with home medications including Xarelto. PHYSICAL EXAMINATION: VITAL SIGNS: Temperature 98.8, pulse rate of 72, respirations of 14, blood pressure 130/84, O2 saturation 97% on room air. GENERAL: A 68-year-old male, in mild distress due to right-sided chest discomfort, especially on coughing. LUNGS: Showed diminished air entry at right base with scattered rales and rhonchi mainly on the right. No significant accessory muscle use. HEART: S1 and S2 present. Regular rate and rhythm. No rubs or gallops. ABDOMEN: Soft, nontender. Bowel sounds present. EXTREMITIES: No edema or calf tenderness. NEUROLOGY: Grossly nonfocal. Moves all 4 extremities. PSYCHIATRY: Alert, awake, and oriented x3. Normal affect. LABORATORY FINDINGS: WBC down to 15.6 from 20.0. There is no bandemia today. INR 1.5. BUN 27, creatinine 1.16. Lactic acid improved to 1.[address] angiogram of the chest by my review showed right-sided infiltrate. IMPRESSION: 1. Sepsis with acute organ dysfunction secondary to right-sided pneumonia. 2. Recent right chest wall injury probably the cause of pneumonia. 3. Extensive venous collateral in the right hemithorax and the right neck, which may be due to narrowing or occlusion of the right subclavian vein. A nonemergent right upper extremity venogram was recommended. Primary care physician advised to follow. 4. History of deep vein thrombosis and pulmonary embolism, on Xarelto. 5. History of IVC filter placement. 6. Hypothyroidism. 7. Morbid obesity with a BMI of 41.2. 8. Lactic acidosis secondary to sepsis, resolved. 9. Abnormal LFTs of unclear etiology. 10. Chronic kidney disease, stage 2. 11. Hypertension. 12. History of gastric bypass. 13. History of seizure disorder from childhood, on primidone. PLAN: Ceftriaxone and azithromycin will be continued. He will benefit from a repeat chest x-ray after 4 weeks. We will recheck labs in a.m. The patient was evaluated by Dr. Ortega today. Continue current home medication including Xarelto. Pain control with Tylenol. We will add p.r.n. pain medications. Plan of care was discussed with the patient in detail. He stated understanding. Job ID: [id number]
[2019-04-21] MEDS ORDERED: Azithromycin 500 MG in Sodium Chloride 0.9% 250 ML 250 ML IVPB SCH (20:00)
[2019-04-21] MEDS ORDERED: Latanoprost 0.005% Ophth Soln 2.5 ml Bottle R EYE SCH (21:00)
[2019-04-21] MEDS ORDERED: Multivit, Therapeutic 1 TAB PO SCH (21:00)
[2019-04-21] MEDS: guaiFENesin ER 600 MG TAB PO SCH (21:09)
[2019-04-21] MEDS: cefTRIAXone\\ROCEPHIN 1 GM in Sodium Chloride 0.9% 100 ML IVPB SCH (22:19)
[2019-04-22 05:40] LABS: #Eosinphils 0.1 thou/uL (0.0-0.7); #Lymphocytes 1.3 thou/uL (1.20-3.40); #Monocytes 0.6 thou/uL (0.11-0.59); #Neutrophils 5.4 thou/uL (1.40-6.50); %Basophils 0.4 % (0.0-1.0); %Eosinophils 1.7 % (0.0-10.0); %Lymphocytes 17.1 % (21.0-51.0); %Monocytes 8.3 % (0.0-10.0); %Neutrophils 72.6 % (42.0-75.0); Hemoglobin 12.7 g/dL (14.0-18.0); Mean Corpuscular HGB CONC 31.8 g/dL (32.0-36.0); Mean Corpuscular Hemoglobin 30.5 pg (27.0-31.0); Mean Corpuscular Volume 95.8 fL (78.0-98.0); Mean Platelet Volume 8.5 fL (7.4-10.4); Platelet Count 146 thou/uL (130-400); RBC Distribution Width 14.2 % (11.5-14.5); Red Blood Cell (RBC) Count 4.16 mill/uL (4.70-6.10); White Blood Cell (WBC) Count 7.4 thou/uL (4.8-10.8)
[2019-04-22] MEDS: Levothyroxine Sodium 100 MCG TAB PO SCH (05:42)
[2019-04-22 06:06] LABS: ALT (SGPT) 55 U/L (8-55); AST (SGOT) 27 U/L (5-34); Albumin 3.3 g/dL (3.4-4.8); Alkaline Phosphatase 92 U/L (40-150); Anion Gap 11 mmol/L (10-20); BUN (Urea Nitrogen) 15 mg/dL (8.4-25.7); Bilirubin, Total 0.4 mg/dL (0.2-1.2); Calc. Creatinine Clearance 154 mL/min (70-130); Calcium 8.8 mg/dL (7.8-10.44); Carbon Dioxide 23 mmol/L (23-31); Chloride 110 mmol/L (98-107); Estimated GFR-MDRD Greater than 90; Globulin 2.9 g/dL (2.4-3.5); Glucose 97 mg/dL (80-115); Protein, Total 6.2 g/dL (5.8-8.1); Sodium 140 mmol/L (136-145)
[2019-04-22] MEDS: DorzolamidE/Timolol 2%/0.5% Ophth Soln 10 ml Bottle R EYE SCH (08:52)
[2019-04-22] MEDS: Tamsulosin HCl 0.4 MG CAP PO SCH (08:53)
[2019-04-22] MEDS: Dutasteride 0.5 MG CAP PO SCH (08:53)
[2019-04-22] MEDS: Famotidine 20 MG TAB PO SCH (08:53)
[2019-04-22] MEDS: guaiFENesin ER 600 MG TAB PO SCH (08:53)
[2019-04-22] MEDS: Rivaroxaban 10 MG TAB PO SCH (08:53)
[2019-04-22] MEDS: Primidone 250 MG TAB PO SCH (08:54)
[2019-04-22] MEDS ORDERED: Saccharomyces boulardii 250 MG CAP PO SCH (09:00)
--- NOTE | 2019-04-22 09:25 | PRG ---
DATE OF SERVICE: 04/22/2019 SUBJECTIVE: Mr. Shook feels better. He is having minimal chest pain. He did have some diarrhea yesterday. OBJECTIVE: VITAL SIGNS: On exam, temperature is 98.0, pulse 72, respirations 16, O2 saturation 98% on room air, and blood pressure 149/84. HEENT: Unremarkable. NECK: No adenopathy or JVD. LUNGS: He has few crackles on the right side. No dullness to percussion. Left side is clear. CARDIAC: S1 and S2. Regular. ABDOMEN: Soft and nontender. EXTREMITIES: No edema. LABORATORY DATA: Sodium 140, potassium 4, chloride 110, CO2 of 23, BUN 15, creatinine 0.7, and glucose 97. White blood cell count 7.4, hematocrit 39.8, and platelet count 146. ASSESSMENT: 1. Community-acquired pneumonia. 2. Right-sided chest contusion. PLAN: The patient is appropriate for discharge. See recommendations from yesterday. He should complete 7 days of antibiotics and get appropriate pain management. He will need a followup x-ray in 3 to 4 weeks. Job ID: [id number]
[2019-04-22 11:54] VITALS: BP 160/80; TEMP 98.6
--- NOTE | 2019-04-23 11:27 | DIS ---
DATE OF ADMISSION: 04/20/2019 DATE OF DISCHARGE: 04/22/2019 DISCHARGE DISPOSITION: Home. FOLLOWUP: 1. Follow up with primary care physician, Dr. Rhett Webb, in 1 week. 2. Follow up with Dr. Ortega in 2 weeks. Repeat chest x-ray after 4 weeks is recommended. Primary care physician advised to follow. ALLERGIES: NO KNOWN DRUG ALLERGIES. THE PATIENT WAS SEEN AND EXAMINED ON THE DAY OF DISCHARGE. DENIES ANY NEW COMPLAINTS. DISCHARGE MEDICATION: 1. Omnicef 300 mg twice daily for next 5 days. 2. Azithromycin 500 mg daily for next 5 days. 3. Tramadol as needed. 4. Multivitamin 1 tablet daily. 5. Florastor 250 mg daily for next 2 to 3 weeks. All other home medications were left unchanged. BRIEF HOSPITAL COURSE: The patient is a 68-year-old male with recent chest wall injury, presented to the hospital with fever along with shortness of breath. The CT scan of the chest done in the emergency room showed findings consistent with right-sided pneumonia. The patient was evaluated by Pulmonary, Dr. Ortega. He was started on IV antibiotics that has been switched to oral. Dr. Ortega also recommended repeat chest x-ray in 3 to 4 weeks. He appears stable for discharge. His vital signs on the day of discharge show temperature 98 with pulse rate 73, respirations 16, blood pressure 149/84 with O2 saturation 98% on room air. SIGNIFICANT LABS: WBC on admission 20.6, at discharge 7.4. The patient also had 21% bandemia on admission and 0% at discharge. Lactic acid on admission 2.3, at discharge 1.7. Creatinine 0.7. Urinalysis was negative. Blood cultures negative. Urine culture negative for 48 hours. Stool for C diff negative. Stool for Campylobacter negative. Stool culture negative so far. FINAL DIAGNOSES: 1. Sepsis with acute organ dysfunction secondary to right-sided pneumonia. 2. Recent right chest wall injury secondary to fall. 3. Extensive venous collateral in the right hemithorax and the right neck, which may be due to narrowing or occlusion of the right subclavian vein on the CT angiogram of the chest. A nonemergent right upper extremity ultrasound is recommended. Primary care physician advised to follow. 4. History of deep vein thrombosis and pulmonary embolism, on anticoagulation. 5. History of inferior vena cava filter. 6. Hypothyroidism. 7. Morbid obesity with a BMI of 41.2. 8. Lactic acid secondary to sepsis. 9. Chronic kidney disease, stage 2. 10. Hypertension. 11. History of seizure disorder from childhood, on primidone. 12. Lactic acidosis secondary to sepsis. 13. Abnormal LFTs of unclear etiology. PLAN: Plan was discussed with the patient in detail. He stated understanding. Job ID: [id number]
== END 2019-04-22 14:45 | disposition home or self-care (01) | DRG 871 ==
LOC: ERS 15:16 → SURG B 19:25
PROVIDERS: ADMIT Internal Medicine; ATTEND Internal Medicine
DX: A41.9 Sepsis, unspecified organism (principal); J18.9 Pneumonia, unspecified organism; D68.59 Other primary thrombophilia; E87.2 Acidosis; Z68.41 Body mass index [BMI] 40.0-44.9, adult; E66.01 Morbid (severe) obesity due to excess calories; E03.9 Hypothyroidism, unspecified; G40.909 Epilepsy, unspecified, not intractable, without status epilepticus; S20.211A Contusion of right front wall of thorax, initial encounter; R65.20 Severe sepsis without septic shock; I12.9 Hypertensive chronic kidney disease with stage 1 through stage 4 chronic kidney disease, or unspecified chronic kidney disease; N18.2 Chronic kidney disease, stage 2 (mild); Z90.49 Acquired absence of other specified parts of digestive tract; Z86.718 Personal history of other venous thrombosis and embolism; Z79.01 Long term (current) use of anticoagulants; Z79.899 Other long term (current) drug therapy; Z86.711 Personal history of pulmonary embolism
CPT/HCPCS: 36415; 51701; 71045; 71275; 80048; 80053; 81003; 81015; 83605; 83690; 84484; 85025; 85610; 85730; 87040; 87045; 87046; 87086; 87324; 87449; 87899; 93005; 96361; 96365; 96375; J0456; J0696; J2543; J3010; J3490; J7050; J7620; Q9966

== ENCOUNTER 2019-08-29 07:11 | Outpatient (CLI) | payer MEDICARE, BC ==
[2019-08-29 15:59] LABS: #Eosinphils 0.1 thou/uL (0.0-0.7); #Lymphocytes 1.5 thou/uL (1.20-3.40); #Monocytes 0.4 thou/uL (0.11-0.59); #Neutrophils 3.2 thou/uL (1.40-6.50); %Basophils 0.6 % (0.0-1.0); %Eosinophils 1.4 % (0.0-10.0); %Lymphocytes 28.9 % (21.0-51.0); %Monocytes 8.3 % (0.0-10.0); %Neutrophils 60.8 % (42.0-75.0); Hemoglobin 15.1 g/dL (14.0-18.0); Mean Corpuscular HGB CONC 33.2 g/dL (32.0-36.0); Mean Corpuscular Hemoglobin 31.3 pg (27.0-31.0); Mean Corpuscular Volume 94.3 fL (78.0-98.0); Mean Platelet Volume 8.2 fL (7.4-10.4); Platelet Count 152 thou/uL (130-400); Red Blood Cell (RBC) Count 4.83 mill/uL (4.70-6.10); White Blood Cell (WBC) Count 5.3 thou/uL (4.8-10.8)
[2019-08-29 16:13] LABS: Anion Gap 11 mmol/L (10-20); BUN (Urea Nitrogen) 29 mg/dL (8.4-25.7); Calc. Creatinine Clearance 0 mL/min (70-130); Carbon Dioxide 29 mmol/L (23-31); Chloride 107 mmol/L (98-107); Estimated GFR-MDRD 67; Glucose 88 mg/dL (80-115); Potassium 4.5 mmol/L (3.5-5.1); Sodium 142 mmol/L (136-145)
== END 2019-08-29 07:12 | disposition home or self-care (01) ==
LOC: LABBT 07:11
PROVIDERS: ATTEND Orthopaedic Surgery Hand Surgery
DX: Z01.812 Encounter for preprocedural laboratory examination (principal); M72.0 Palmar fascial fibromatosis [Dupuytren]
CPT/HCPCS: 80048; 85025

== ENCOUNTER 2019-09-02 11:24 | Day surgery (SDC) | payer MEDICARE, BC ==
[2019-08-29 15:16] VITALS: BMI 41.0
[~2019-09-02 11:24] MED LIST changes: +Bupivacaine HCl 0.5%/Epinephrine 1:200,000/PF 30 ml Vial ONE; +EPINEPHrine 1 MG/10 ML Abboject SYRINGE ONE; -ISOVUE-370 76%-LOCM 1 ML ONE; +Ketorolac Tromethamine 30 MG/ML VIAL ONE; +Lidocaine 1% PF 5 ML VIAL ONE; +Ondansetron PF 4 MG/2 ML Vial ONE; +PHENYLEPHRINE-NS 100 MCG/ML 10 ML SYRINGE ONE; +PROPOFOL 200 MG/20 ML VIAL ONE
[2019-09-02] MEDS ORDERED: Bupivacaine PF 0.5% 30 ML VIAL ONE (12:28)
[2019-09-02] MEDS ORDERED: Betamet Acet/Betamet Na Ph 30 MG/5 ML VIAL ONE (12:28)
[2019-09-02] MEDS ORDERED: Sodium Chloride 0.9% 10 ML ONE (12:28)
[2019-09-02] MEDS ORDERED: Bacitracin Zinc Ointment 30 gm TUBE ONE (12:28)
[2019-09-02] MEDS ORDERED: Midazolam HCl 2 mg/2 ml Vial ONE (12:29)
[2019-09-02] MEDS ORDERED: Fentanyl 100 MCG/2 ML VIAL ONE ×2 (12:29→13:04)
[2019-09-02] MEDS ORDERED: Bupivacaine 0.5% 10 ML VIAL ONE (12:30)
--- NOTE | 2019-09-03 01:50 | OP ---
DATE OF PROCEDURE: 09/02/2019 PREOPERATIVE DIAGNOSES: 1. Right ring finger Dupuytren's cord. 2. Right ring finger keloid over previous Dupuytren's incision 3 cm x 0.75 cm. PROCEDURE PERFORMED: 1. Neuroplasty, ring finger digital nerve. 2. Neuroplasty, middle finger, left ulnar nerve. Please note that the ring finger digital neuroplasty was radial ulnar nerve. 3. Excision, Dupuytren's cord with Dupuytren's fasciectomy. 4. Excision keloid. 5. Full-thickness skin graft, 2.5 x 0.75 cm. This would be a full-thickness skin graft harvested from the ipsilateral antecubital fossa. SPECIMEN SENT: 1. Dupuytren's cord. 2. Keloid as described above. TOURNIQUET TIME: 57 minutes. ESTIMATED BLOOD LOSS: 10 mL. INDICATIONS FOR PROCEDURE: The patient had Dupuytren's fasciectomy subtotal over a year and a half ago and developed this mass with tenderness 3 cm long x 0.5 to 0.75 cm wide and thick. It did not resolve with conservative treatment, so operative intervention was indicated. We knew we would have to identify the neurovascular bundle and protect it and so neuroplasty was indicated as well. DESCRIPTION OF PROCEDURE: After successful general endotracheal anesthesia, the limb was prepped and draped. The patient also had a block. We then outlined the mass, which raised and elevated from the palmar skin just on the radial aspect of the base of the ring finger proximal phalanx where it was 2.5 to 3 cm long and almost 5 mm wide. With the limb exsanguinated, tourniquet inflated to 250 mmHg pressure. I was able to enter the previous incision 1 cm distal to this mass and carried it through the mass and then 2 cm proximal. The most proximal to the wound, we identified the 2 neurovascular bundles to include the digital nerve via neuroplasty formally. We removed and these from scar, especially on the radial aspect and Dupuytren's cord. Once we had done this, we elevated the cord and began to dissect it from under the skin where it was adherent to the dermis. While this was being done, the patient had the specimen removed. Once we had done the fasciectomy and we began to then resect the full size of the keloid. Once that was done, we visualized we had protected the nerves and we did a neuroplasty of the ring finger, ulnar digital nerve to make sure there was no damage here and also to make an incision that would be relaxing enough to preserve the web space. Once we had done this and the mass was gone, we then deflated the tourniquet. We put Celestone 5 mL total along the course of the dissection and then closed the incision with interrupted 4-0 nylon in simple pattern. It was here that we noticed a gap of almost 2.5 to 2.75 cm long and 0.75 cm wide where the Keloid had been excised. For this, we harvested the same side graft with an ellipse patient's forearm and then secured it with 4-0 nylon two sutures and a running 6-0 chromic. The patient then left the operating room with the skin closed and hemostasis obtained using 4-0 nylon interrupted mattress pattern and a splint was applied with the PIP and DIP, the ring, small and long all extended. The patient left the operating without evidence of anesthetic or operative complication. Job ID: [id number]
--- NOTE | 2019-09-05 06:12 | PQF ---
[facility] POST DISCHARGE CLINICAL DOCUMENTATION IMPROVEMENT CLARIFICATION FORM l Todays Date: 09/05/19 l Patients Name YELENA WREN l l Admit Date 09/02/19 l Disch Date 09/02/19 Glass Loading Equipment Tender Name Shankar Aguilera Email: [email or web address] Cell: [phone] To be completed by Glass Loading Equipment Tender: Present Clinical Indicators - Signs / Symptoms Results and Location in Medical Record [ ] Documentation of: [ ] [ ] Documentation of: [ ] [ ] Documentation of: [ ] [ ] Documentation of: [ ] [ ] Risks [ ] [ ] [ ] Treatment [ ] Keloid scar Left ring finger Query for excised margins [ ] [ ] To be completed by Physician: JH HOOPER The documentation in this patients record requires clarification to ensure coding compliance and accuracy. Check the appropriate box and include in your discharge summary. [ ] [ ] [ ] [ ] Please check this box if this does not apply to this patient [ ] Unable to determine [ ] Other diagnosis: Review the following information and exercise your independent professional judgment in responding to the clarification. Based upon the clinical findings, risk factors, and treatment, please clarify if you are treating one of the above probable or suspected diagnoses. Physician Signature: Date Time MTDD
== END 2019-09-02 18:05 | disposition home or self-care (01) ==
LOC: SDC 11:24
PROVIDERS: ATTEND Orthopaedic Surgery Hand Surgery
PROC: 0JNJ0ZZ Release Right Hand Subcutaneous Tissue and Fascia, Open Approach (ICD-10-PCS; principal; 2019-09-02)
PROC: 01N60ZZ Release Radial Nerve, Open Approach (ICD-10-PCS; 2019-09-02)
PROC: 01N40ZZ Release Ulnar Nerve, Open Approach (ICD-10-PCS; 2019-09-02)
PROC: 0HRFX73 Replacement of Right Hand Skin with Autologous Tissue Substitute, Full Thickness, External Approach (ICD-10-PCS; 2019-09-02)
DX: M72.0 Palmar fascial fibromatosis [Dupuytren] (principal); L91.0 Hypertrophic scar; E03.9 Hypothyroidism, unspecified; N40.0 Benign prostatic hyperplasia without lower urinary tract symptoms; M19.90 Unspecified osteoarthritis, unspecified site; Z79.01 Long term (current) use of anticoagulants; Z79.84 Long term (current) use of oral hypoglycemic drugs; Z79.899 Other long term (current) drug therapy; Z98.84 Bariatric surgery status
CPT/HCPCS: 88304; J0171; J0670; J0690; J0702; J1885; J2001; J2250; J2405; J2704; J3010; J3490; S0020

== ENCOUNTER 2023-01-18 10:42 | Outpatient (CLI) | payer MEDICARE, BC ==
[2023-01-18 12:33] LABS: Bilirubin Neg (Negative); Blood, Urine Negative (Negative); Clarity Clear (Clear); Glucose, Urine (Dipstick) Normal (Negative); Ketone, Urine Negative (Negative); Leukocyte 25 (Negative); Nitrite Negative (Negative); Protein, Urine (Dipstick) 30 mg/dl (Neg-Trace); Specific Gravity, Urine 1.015 (1.005-1.030); Urobilinogen Normal mg/dL (Less than 2)
[2023-01-18 12:51] LABS: Hemoglobin 14.1 g/dL (13.5-17.5); Mean Corpuscular HGB CONC 32.7 g/dL (32.0-36.0); Mean Corpuscular Hemoglobin 31.3 pg (27.0-33.0); Mean Corpuscular Volume 95.8 fl (81.2-95.1); Mean Platelet Volume 10.5 fl (7.4-10.4); Platelet Count 193 10x3/uL (150-450); RBC Distribution Width 14.4 % (11.5-14.5); White Blood Cell (WBC) Count 6.1 10x3/uL (3.5-10.5)
[2023-01-18 12:53] LABS: PTT 27.3 sec (22.0-33.0); Prothrombin Time 11.2 sec (9.5-12.1)
[2023-01-18 13:00] LABS: Anion Gap 14 mmol/L (10-20); BUN (Urea Nitrogen) 23 mg/dL (8.4-25.7); Calc. Creatinine Clearance 0 mL/min (70-130); Calcium 8.7 mg/dL (7.8-10.44); Carbon Dioxide 24 mmol/L (23-31); Chloride 108 mmol/L (98-107); Estimated GFR 79; Glucose 98 mg/dL (83-110); Potassium 4.1 mmol/L (3.5-5.1); Sodium 142 mmol/L (136-145)
[2023-01-18 13:18] LABS: Bacteria/HPF 2+ HPF (None Seen); Mucous/LPF 2+ LPF (<2+); RBC/HPF 0-3 HPF (0-3)
== END 2023-01-18 10:43 | disposition home or self-care (01) ==
LOC: LABBT 10:42
PROVIDERS: ATTEND Urology
DX: Z01.818 Encounter for other preprocedural examination (principal); Z12.5 Encounter for screening for malignant neoplasm of prostate; M51.9 Unspecified thoracic, thoracolumbar and lumbosacral intervertebral disc disorder; G89.4 Chronic pain syndrome; N35.816 Other urethral stricture, male, overlapping sites; N40.1 Benign prostatic hyperplasia with lower urinary tract symptoms; R35.0 Frequency of micturition; N36.5 Urethral false passage; E11.9 Type 2 diabetes mellitus without complications; Z79.891 Long term (current) use of opiate analgesic
CPT/HCPCS: 80048; 81001; 85027; 85610; 85730; 87086; 93005; 93010

== ENCOUNTER 2023-01-31 06:16 | Day surgery (SDC) | payer MEDICARE, BC ==
[2023-01-30 09:09] VITALS: BMI 41.0
[2023-01-31] MEDS ORDERED: Triamcinolone 40 MG/ML VIAL IM SCH (07:15)
[2023-01-31] MEDS ORDERED: Levofloxacin 500 mg/D5W 100 ml Premix Bag ONE (07:42)
[2023-01-31] MEDS ORDERED: Propofol 1,000 MG/100 ML VIAL IV ONE (08:27)
[2023-01-31] MEDS ORDERED: fentaNYL PF 100 MCG/2 ML SYRINGE ONE (08:27)
[2023-01-31] MEDS ORDERED: PROPOFOL 200 MG/20 ML VIAL ONE (08:41)
[2023-01-31] MEDS ORDERED: ePHEDrine Sulfate 50 MG/10 ML VIAL ONE (08:41)
[2023-01-31] MEDS ORDERED: Ondansetron PF 4 MG/2 ML Vial ONE (08:41)
[2023-01-31] MEDS ORDERED: GLYCOPYRROLATE/PF 0.2 MG/ML VIAL ONE (08:41)
[2023-01-31] MEDS ORDERED: Phenylephrine 10 MG/ML VIAL ONE (08:41)
[2023-01-31] MEDS ORDERED: Phenazopyridine HCl 100 MG TAB ONE (10:12)
[2023-01-31] MEDS ORDERED: Oxybutynin 5 MG TAB ONE (10:12)
[2023-01-31] MEDS ORDERED: fentaNYL 50 mcg/mL 1 mL Vial ONE ×4 (12:45→14:29)
== END 2023-01-31 16:20 | disposition home or self-care (01) ==
LOC: SDC 06:16
PROVIDERS: ATTEND Urology
PROC: 0T7D8ZZ Dilation of Urethra, Via Natural or Artificial Opening Endoscopic (ICD-10-PCS; principal; 2023-01-31)
PROC: 0T7D8DZ Dilation of Urethra with Intraluminal Device, Via Natural or Artificial Opening Endoscopic (ICD-10-PCS; 2023-01-31)
DX: N40.0 Benign prostatic hyperplasia without lower urinary tract symptoms (principal); N35.911 Unspecified urethral stricture, male, meatal; N35.912 Unspecified bulbous urethral stricture, male; E03.9 Hypothyroidism, unspecified; M19.90 Unspecified osteoarthritis, unspecified site; Z86.711 Personal history of pulmonary embolism; Z79.01 Long term (current) use of anticoagulants; Z79.890 Hormone replacement therapy; Z79.899 Other long term (current) drug therapy; Z88.8 Allergy status to other drugs, medicaments and biological substances; Z98.84 Bariatric surgery status
CPT/HCPCS: 52283; C9740; J3010; A4311; J1956; J2704; J3301; L8699

== ENCOUNTER 2023-06-01 13:02 | Outpatient (CLI) | payer MEDICARE, BC | END 2023-06-01 13:03 | disposition home or self-care (01) | LOC: BICMRI 13:02 | PROVIDERS: ATTEND Family Medicine | DX: M48.062 Spinal stenosis, lumbar region with neurogenic claudication (principal); M47.816 Spondylosis without myelopathy or radiculopathy, lumbar region; M47.817 Spondylosis without myelopathy or radiculopathy, lumbosacral region | CPT/HCPCS: 72148 ==

== ENCOUNTER 2023-12-14 15:34 | Outpatient (CLI) | payer MEDICARE ==
[2023-12-14 16:54] LABS: Hematocrit 44.6 % (38.8-50.0); Hemoglobin 14.1 g/dL (13.5-17.5); Mean Corpuscular HGB CONC 31.6 g/dL (32.0-36.0); Mean Corpuscular Hemoglobin 30.3 pg (27.0-33.0); Mean Corpuscular Volume 95.9 fl (81.2-95.1); Mean Platelet Volume 10.4 fl (7.4-10.4); Platelet Count 172 10x3/uL (150-450); RBC Distribution Width 14.6 % (11.5-14.5); Red Blood Cell (RBC) Count 4.65 10x6/uL (4.32-5.72); White Blood Cell (WBC) Count 4.5 10x3/uL (3.5-10.5)
[2023-12-14 16:57] LABS: INR-International Normal Ratio 1.1; PTT 28.7 sec (22.0-33.0); Prothrombin Time 11.4 sec (9.5-12.1)
[2023-12-14 17:04] LABS: Anion Gap 15 mmol/L (10-20); BUN (Urea Nitrogen) 25 mg/dL (8.4-25.7); Calc. Creatinine Clearance 0 mL/min (70-130); Calcium 8.8 mg/dL (7.8-10.44); Carbon Dioxide 22 mmol/L (23-31); Chloride 111 mmol/L (98-107); Estimated GFR 62; Glucose 110 mg/dL (83-110); Potassium 4.7 mmol/L (3.5-5.1); Sodium 143 mmol/L (136-145)
== END 2023-12-14 15:35 | disposition home or self-care (01) ==
LOC: LABBT 15:34
PROVIDERS: ATTEND Surgery
DX: Z01.818 Encounter for other preprocedural examination (principal); M48.061 Spinal stenosis, lumbar region without neurogenic claudication; M54.16 Radiculopathy, lumbar region
CPT/HCPCS: 80048; 85027; 85610; 85730; 93005; 93010

== ENCOUNTER 2023-12-18 08:45 | Inpatient (IN) | payer MEDICARE ==
[2023-12-18] MEDS ORDERED: Thrombin 5000 UNITS/5 ML VIAL ONE ×2 (10:48→13:25)
[2023-12-18] MEDS ORDERED: Vancomycin 1 GM VIAL ONE (10:48)
[2023-12-18] MEDS ORDERED: fentaNYL 50 mcg/mL 1 mL Vial ONE ×3 (10:56→16:57)
[2023-12-18] MEDS ORDERED: Lidocaine 1% PF 5 ML VIAL ONE (10:56)
[2023-12-18] MEDS ORDERED: Esmolol 100 MG/10 ML VIAL ONE (10:56)
[2023-12-18] MEDS ORDERED: Dexamethasone 4 mg/ml Vial ONE (10:56)
[2023-12-18] MEDS ORDERED: Rocuronium Bromide 10 MG/ML (10ML VIAL) ONE (10:56)
[2023-12-18] MEDS ORDERED: Ondansetron PF 4 MG/2 ML Vial ONE (10:56)
[2023-12-18] MEDS ORDERED: HYDROmorphone 0.5 MG/0.5 ML SYRINGE ONE ×2 (10:58→15:41)
[2023-12-18] MEDS ORDERED: Propofol 500 MG/50 ML VIAL ONE (10:58)
[2023-12-18] MEDS ORDERED: CEFAZOLIN 2 GM VIAL ONE (11:08)
[2023-12-18] MEDS ORDERED: Sodium Chloride 0.9% 100 ML ONE (11:08)
[2023-12-18] MEDS ORDERED: PHENYLEPHRINE-NS 100 MCG/ML 10 ML SYRINGE ONE (12:31)
[2023-12-18] MEDS ORDERED: ePHEDrine Sulfate 50 MG/10 ML VIAL ONE (13:28)
[2023-12-18] MEDS ORDERED: HYDROmorphone 2 MG/ML VIAL ONE (14:36)
[2023-12-18] MEDS ORDERED: Labetalol HCl 100 MG/20 ML VIAL ONE (14:59)
[2023-12-18] MEDS ORDERED: Acetaminophen 325 MG TAB PO PRN (15:04)
[2023-12-18] MEDS ORDERED: diphenhydrAMINE 25 MG CAP PO PRN (15:04)
[2023-12-18] MEDS ORDERED: Ondansetron PF 4 MG/2 ML Vial IVP PRN (15:04)
[2023-12-18] MEDS ORDERED: Milk Of Magnesia 30 ML UDCUP PO PRN (15:04)
[2023-12-18] MEDS ORDERED: Colestipol 1 GM TAB PO PRN (15:07)
[2023-12-18] MEDS ORDERED: guaiFENesin ER 600 MG TAB PO PRN (15:07)
[2023-12-18] MEDS ORDERED: HYDROcodone/Acetaminophen 5/325 mg Tablet PO PRN (15:09)
[2023-12-18] MEDS ORDERED: hydrALAZINE 20 MG/ML VIAL SLOW IVP PRN (15:09)
[2023-12-18] MEDS: Sodium Chloride 0.9% 1,000 ML IV SCH (17:46)
[2023-12-18 18:14] VITALS: BMI 43.0
[2023-12-18] MEDS: CEFAZOLIN 2 GM in Sodium Chloride 0.9% 100 ML IVPB SCH (18:19)
[2023-12-18] MEDS: Acetaminophen/Codeine 30-300mg Tablet PO PRN (18:28)
[2023-12-18] MEDS: HYDROcodone/Acetaminophen 10/325 mg Tablet PO PRN (20:27)
[2023-12-18] MEDS: Cyclobenzaprine 10 MG TAB PO PRN (20:27)
[2023-12-18] MEDS: Montelukast Sodium 10 mg Tablet PO SCH (20:29)
[2023-12-18] MEDS: Azelastine 137 MCG/NASAL Spray 30 ML NS SCH (23:15)
[2023-12-18] MEDS: Latanoprost 0.005% Ophth Soln 2.5 ml Bottle R EYE SCH (23:15)
[2023-12-18] MEDS: DorzolamidE/Timolol 2%/0.5% Ophth Soln 10 ml Bottle R EYE SCH (23:15)
[2023-12-19 06:10] LABS: #Eosinphils 0.1 thou/uL (0.0-0.7); #Monocytes 0.7 thou/uL (0.11-0.59); #Neutrophils 4.5 thou/uL (1.40-6.50); %Basophils 0.4 % (0.0-1.0); %Eosinophils 1.5 % (0.0-10.0); %Lymphocytes 24.5 % (21.0-51.0); %Monocytes 9.6 % (0.0-10.0); %Neutrophils 63.7 % (42.0-75.0); Hemoglobin 12.1 g/dL (14.0-18.0); Mean Corpuscular HGB CONC 31.8 g/dL (32.0-36.0); Mean Corpuscular Hemoglobin 30.7 pg (27.0-31.0); Mean Corpuscular Volume 96.4 fl (78.0-98.0); Mean Platelet Volume 10.2 fL (7.4-10.4); Platelet Count 140 10x3/uL (130-400); RBC Distribution Width 14.9 % (11.5-14.5); Red Blood Cell (RBC) Count 3.94 mill/uL (4.70-6.10); White Blood Cell (WBC) Count 7.1 10x3/uL (4.8-10.8)
[2023-12-19] MEDS: Levothyroxine Sodium 100 MCG TAB PO SCH (06:37)
[2023-12-19 06:42] LABS: Anion Gap 11 mmol/L (10-20); BUN (Urea Nitrogen) 25 mg/dL (8.4-25.7); Calc. Creatinine Clearance 108 mL/min (70-130); Calcium 8.4 mg/dL (7.8-10.44); Carbon Dioxide 21 mmol/L (23-31); Chloride 111 mmol/L (98-107); Estimated GFR 74; Glucose 103 mg/dL (83-110); Potassium 4.4 mmol/L (3.5-5.1); Sodium 139 mmol/L (136-145)
[2023-12-19] MEDS: Enoxaparin 40 MG (0.4 mL) SYRINGE SC SCH (09:42)
[2023-12-19] MEDS: Multivit, Chewable SF 1 TAB PO SCH (09:43)
[2023-12-19] MEDS: Tamsulosin HCl 0.4 MG CAP PO SCH (09:44)
[2023-12-19] MEDS: Pioglitazone HCl 15 MG TAB PO SCH (09:44)
[2023-12-19] MEDS: Primidone 250 MG TAB PO SCH (09:44)
[2023-12-19] MEDS: Meloxicam 15 MG TAB PO SCH (09:44)
[2023-12-19] MEDS: fentaNYL 50 mcg/mL 1 mL Vial SLOW IVP PRN (10:52)
[2023-12-20] MEDS: Ketorolac Tromethamine 30 MG (1 mL) VIAL IVP SCH (12:33)
[2023-12-21] MEDS: Meloxicam 15 MG TAB PO SCH (09:21)
[2023-12-21] MEDS: Diazepam 5 MG TAB PO PRN (20:56)
[2023-12-22 08:05] VITALS: BP 165/82; TEMP 98.4
== END 2023-12-22 15:25 | disposition home or self-care (01) | DRG 519 ==
LOC: SDC 08:45 → MSONC 15:02 → OBSVTOIN 12-19 08:58
PROVIDERS: ADMIT Surgery; ATTEND Surgery
PROC: 00NY0ZZ Release Lumbar Spinal Cord, Open Approach (ICD-10-PCS; principal; 2023-12-18)
PROC: 01NB0ZZ Release Lumbar Nerve, Open Approach (ICD-10-PCS; 2023-12-18)
PROC: 3E033XZ Introduction of Vasopressor into Peripheral Vein, Percutaneous Approach (ICD-10-PCS; 2023-12-18)
DX: M48.062 Spinal stenosis, lumbar region with neurogenic claudication (principal); I82.512 Chronic embolism and thrombosis of left femoral vein; I82.532 Chronic embolism and thrombosis of left popliteal vein; M54.16 Radiculopathy, lumbar region; G89.18 Other acute postprocedural pain
CPT/HCPCS: 36415; 80048; 85025; 93970; 96374; 96376; G0378; J1100; J1170; J1650; J1885; J2405; J2704; J3010; J3370; J3490; J7050

== ENCOUNTER 2024-03-09 04:34 | Inpatient (IN) | payer MEDICARE ==
[2024-03-09] MEDS ORDERED: Albuterol 2.5 MG (3 mL) NEB ONE (05:09)
[2024-03-09 05:10] LABS: #Basophils Less than 0.03 10x3/uL (0.0-0.2); %Basophils 0.3 % (0.0-1.0); %Eosinophils 0.8 % (0.0-10.0); %Lymphocytes 11.7 % (21.0-51.0); %Monocytes 4.5 % (0.0-10.0); %Neutrophils 82.6 % (42.0-75.0); Hematocrit 42.2 % (42.0-52.0); Hemoglobin 13.9 g/dL (14.0-18.0); Mean Corpuscular HGB CONC 32.9 g/dL (32.0-36.0); Mean Corpuscular Volume 90.9 fL (78.0-98.0); Mean Platelet Volume 10.4 fL (7.4-10.4); Platelet Count 182 10x3/uL (130-400); Red Blood Cell (RBC) Count 4.64 mill/uL (4.70-6.10)
[2024-03-09] MEDS ORDERED: Ipratropium Bromide 2.5 ml Neb ONE (05:11)
[2024-03-09 05:28] LABS: ALT (SGPT) 36 U/L (8-55); AST (SGOT) 29 U/L (5-34); Albumin 3.3 g/dL (3.4-4.8); Alkaline Phosphatase 166 U/L (40-110); Anion Gap 17 mmol/L (10-20); BUN (Urea Nitrogen) 19 mg/dL (8.4-25.7); Bilirubin, Total 0.6 mg/dL (0.2-1.2); Calc. Creatinine Clearance 0 mL/min (70-130); Calcium 8.5 mg/dL (7.8-10.44); Carbon Dioxide 19 mmol/L (23-31); Chloride 111 mmol/L (98-107); Estimated GFR 81; Globulin 3.4 g/dL (2.4-3.5); Glucose 146 mg/dL (83-110); Potassium 3.9 mmol/L (3.5-5.1); Protein, Total 6.7 g/dL (5.8-8.1); Sodium 143 mmol/L (136-145)
[2024-03-09 05:31] LABS: Troponin I Less than 0.010 ng/mL (< 0.028)
[2024-03-09] MEDS ORDERED: Cefepime 2 GM VIAL ONE (06:17)
[2024-03-09] MEDS ORDERED: methylPREDNISolone Sod Succ/PF 125 MG/2 ML VIAL ONE (06:17)
[2024-03-09 06:53] LABS: Bacteria/HPF None Seen HPF (None Seen); CAUTI Indications for Culture Fever or rigors; RBC/HPF 0-3 HPF (0-3); Squamous Epithelial 0-3 HPF (0-3); WBC/HPF 0-3 HPF (0-3)
[2024-03-09 06:57] LABS: Urine Culture Reflex No No
[2024-03-09 06:59] LABS: Bilirubin Negative (Negative); Blood, Urine Negative (Negative); Clarity Clear (Clear); Glucose, Urine (Dipstick) Normal (Negative); Ketone, Urine 20 mg/dL (Negative); Leukocyte Negative Leu/uL (Negative); Nitrite Negative (Negative); Protein, Urine (Dipstick) Negative (Neg-Trace); Specific Gravity, Urine 1.035 (1.002-1.036); Urobilinogen Normal mg/dL (Less than 2); pH, Urine 5.5 (5.0-9.0)
[2024-03-09] MEDS ORDERED: Vancomycin 1 GM/200 ML (FROZEN) BAG ONE (07:30)
[2024-03-09 08:00] LABS: Lactic Acid 1.2 mmol/L (0.5-2.2)
[2024-03-09] MEDS ORDERED: Ondansetron ODT 4 MG TAB PO PRN (09:25)
[2024-03-09] MEDS ORDERED: Guaifenesin DM 100-10/5 ML UDCUP PO PRN (09:25)
[2024-03-09] MEDS ORDERED: Ondansetron PF 4 MG/2 ML Vial IVP PRN (09:25)
[2024-03-09] MEDS ORDERED: hydrALAZINE 20 MG/ML VIAL SLOW IVP PRN (09:25)
[2024-03-09] MEDS ORDERED: Benzonatate 100 MG CAP PO PRN (09:25)
[2024-03-09] MEDS: Ipratropium/Albuterol 3 ML NEB NEB SCH (10:30)
[2024-03-09 10:54] VITALS: BMI 42.3
[2024-03-09] MEDS: Famotidine 20 MG TAB PO SCH (10:57)
[2024-03-09] MEDS: Acetaminophen 500 MG TAB PO PRN (11:06)
[2024-03-09] MEDS: Vancomycin (BATCH) 1.5 GM in Premix 1 BAG IVPB SCH (12:38)
[2024-03-09] MEDS ORDERED: Iopamidol-370 76% 500 ML MDV (1 ML CHARGE) ONE (14:45)
[2024-03-09] MEDS: Cefepime 2 GM in Sodium Chloride 0.9% 100 ML IVPB SCH (17:50)
[2024-03-09] MEDS ORDERED: Cyclobenzaprine 10 MG TAB PO PRN (18:01)
[2024-03-09] MEDS: Vancomycin 1 GM in Sodium Chloride 0.9% 250 ML 300 ML IVPB SCH (21:10)
[2024-03-09] MEDS: Latanoprost 0.005% Ophth Soln 2.5 ml Bottle R EYE SCH (21:12)
[2024-03-09] MEDS: Vit A,C & E/Lutein/Minerals Tablet PO SCH (21:12)
[2024-03-09] MEDS: DorzolamidE/Timolol 2%/0.5% Ophth Soln 10 ml Bottle R EYE SCH (21:13)
[2024-03-10] MEDS: Levothyroxine Sodium 100 MCG TAB PO SCH (06:27)
[2024-03-10 07:17] LABS: #Basophils Less than 0.03 10x3/uL (0.0-0.2); %Basophils 0.3 % (0.0-1.0); %Eosinophils 1.9 % (0.0-10.0); %Lymphocytes 18.2 % (21.0-51.0); %Neutrophils 71.2 % (42.0-75.0); Hematocrit 34.3 % (42.0-52.0); Mean Corpuscular HGB CONC 32.1 g/dL (32.0-36.0); Mean Corpuscular Hemoglobin 30.4 pg (27.0-31.0); Mean Corpuscular Volume 94.8 fL (78.0-98.0); Mean Platelet Volume 10.7 fL (7.4-10.4); Platelet Count 154 10x3/uL (130-400); RBC Distribution Width 15.2 % (11.5-14.5); Red Blood Cell (RBC) Count 3.62 mill/uL (4.70-6.10)
[2024-03-10] MEDS: Meloxicam 15 MG TAB PO SCH (07:25)
[2024-03-10] MEDS: Rivaroxaban 10 MG TAB PO SCH (07:26)
[2024-03-10] MEDS: Tamsulosin HCl 0.4 MG CAP PO SCH (07:26)
[2024-03-10] MEDS: Pioglitazone HCl 15 MG TAB PO SCH (07:26)
[2024-03-10] MEDS: Primidone 250 MG TAB PO SCH (07:27)
[2024-03-10 07:31] LABS: Vancomycin, Random 12.1 ug/mL (See Comment)
[2024-03-10 07:33] LABS: Anion Gap 11 mmol/L (10-20); BUN (Urea Nitrogen) 17 mg/dL (8.4-25.7); Calc. Creatinine Clearance 135 mL/min (70-130); Calcium 8.1 mg/dL (7.8-10.44); Carbon Dioxide 24 mmol/L (23-31); Chloride 112 mmol/L (98-107); Estimated GFR 92; Glucose 96 mg/dL (83-110); Potassium 3.8 mmol/L (3.5-5.1); Sodium 143 mmol/L (136-145)
[2024-03-10] MEDS: Vancomycin (BATCH) 1.25 GM in Premix 1 BAG IVPB SCH (13:17)
[2024-03-10] MEDS ORDERED: Vancomycin (BATCH) 1.75 GM in Premix 1 BAG IVPB SCH (14:00)
[2024-03-10 14:31] VITALS: BMI 42.6
[2024-03-10] MEDS: HYDROcodone/Acetaminophen 5/325 mg Tablet PO PRN (18:40)
[2024-03-10] MEDS ORDERED: Amoxicillin/Potassium Clav 875 MG TAB PO SCH (21:00)
[2024-03-11 05:38] LABS: #Basophils Less than 0.03 10x3/uL (0.0-0.2); %Basophils 0.3 % (0.0-1.0); %Eosinophils 3.7 % (0.0-10.0); %Lymphocytes 16.4 % (21.0-51.0); %Monocytes 6.6 % (0.0-10.0); %Neutrophils 72.8 % (42.0-75.0); Hematocrit 34.7 % (42.0-52.0); Hemoglobin 11.1 g/dL (14.0-18.0); Mean Corpuscular Volume 93.8 fL (78.0-98.0); Mean Platelet Volume 10.6 fL (7.4-10.4); Platelet Count 159 10x3/uL (130-400); RBC Distribution Width 15.1 % (11.5-14.5)
[2024-03-11 05:46] LABS: Vancomycin, Random 25.4 ug/mL (See Comment)
[2024-03-11 05:49] LABS: Anion Gap 14 mmol/L (10-20); BUN (Urea Nitrogen) 16 mg/dL (8.4-25.7); Calc. Creatinine Clearance 134 mL/min (70-130); Calcium 8.4 mg/dL (7.8-10.44); Carbon Dioxide 23 mmol/L (23-31); Chloride 109 mmol/L (98-107); Estimated GFR 92; Glucose 102 mg/dL (83-110); Potassium 4.1 mmol/L (3.5-5.1); Sodium 142 mmol/L (136-145)
[2024-03-11] MEDS: Amoxicillin/Potassium Clav 875 MG TAB PO SCH (08:59)
[2024-03-11] MEDS ORDERED: Vancomycin (BATCH) 1.25 GM in Premix 1 BAG IVPB SCH (23:00)
[2024-03-12 05:26] LABS: #Basophils 0.03 10x3/uL (0.0-0.2); %Basophils 0.5 % (0.0-1.0); %Eosinophils 3.8 % (0.0-10.0); %Lymphocytes 20.5 % (21.0-51.0); %Neutrophils 66.9 % (42.0-75.0); Hematocrit 35.8 % (42.0-52.0); Hemoglobin 11.4 g/dL (14.0-18.0); Mean Corpuscular HGB CONC 31.8 g/dL (32.0-36.0); Mean Corpuscular Hemoglobin 30.2 pg (27.0-31.0); Mean Corpuscular Volume 94.7 fL (78.0-98.0); Mean Platelet Volume 10.6 fL (7.4-10.4); Platelet Count 169 10x3/uL (130-400); RBC Distribution Width 15.1 % (11.5-14.5); Red Blood Cell (RBC) Count 3.78 mill/uL (4.70-6.10)
[2024-03-12 05:56] LABS: Anion Gap 16 mmol/L (10-20); BUN (Urea Nitrogen) 10 mg/dL (8.4-25.7); Calc. Creatinine Clearance 154 mL/min (70-130); Carbon Dioxide 21 mmol/L (23-31); Chloride 108 mmol/L (98-107); Potassium 3.7 mmol/L (3.5-5.1); Sodium 141 mmol/L (136-145)
[2024-03-12 05:57] LABS: Calcium 8.4 mg/dL (7.8-10.44); Estimated GFR 95; Glucose 99 mg/dL (83-110)
[2024-03-12 08:49] VITALS: BP 148/78; TEMP 98.7
== END 2024-03-12 11:07 | disposition home or self-care (01) | DRG 871 ==
LOC: ERS 04:34 → IMCU/EMU 10:18 → T4-B 03-10 16:48
PROVIDERS: ADMIT Family Medicine; ATTEND Family Medicine
DX: A41.9 Sepsis, unspecified organism (principal); J15.8 Pneumonia due to other specified bacteria; J96.01 Acute respiratory failure with hypoxia; D68.59 Other primary thrombophilia; Z88.8 Allergy status to other drugs, medicaments and biological substances; I10 Essential (primary) hypertension; E03.9 Hypothyroidism, unspecified; Z90.49 Acquired absence of other specified parts of digestive tract; Z90.89 Acquired absence of other organs; G40.909 Epilepsy, unspecified, not intractable, without status epilepticus; Z98.890 Other specified postprocedural states; Z79.899 Other long term (current) drug therapy; R65.20 Severe sepsis without septic shock; Z86.711 Personal history of pulmonary embolism
CPT/HCPCS: 36415; 71045; 71275; 80048; 80053; 80202; 81001; 83605; 83880; 84145; 84484; 85025; 87040; 87081; 87086; 93005; 94640; 94660; 96365; 96375; 97139; J0692; J2930; J3370; J3370-JW; J3490; J7611; J7620; Q9967

== ENCOUNTER 2024-07-12 18:11 | Inpatient (IN) | payer MEDICARE, OTHER ==
[2024-07-12 19:43] LABS: #Basophils 0.03 10x3/uL (0.0-0.2); %Basophils 0.4 % (0.0-1.0); %Eosinophils 1.3 % (0.0-10.0); %Lymphocytes 13.1 % (21.0-51.0); %Monocytes 6.8 % (0.0-10.0); %Neutrophils 78.3 % (42.0-75.0); Hemoglobin 12.2 g/dL (14.0-18.0); Mean Corpuscular HGB CONC 32.1 g/dL (32.0-36.0); Mean Corpuscular Hemoglobin 30.3 pg (27.0-31.0); Mean Corpuscular Volume 94.3 fL (78.0-98.0); Mean Platelet Volume 10.1 fL (7.4-10.4); Platelet Count 147 10x3/uL (130-400); RBC Distribution Width 19.4 % (11.5-14.5); Red Blood Cell (RBC) Count 4.03 mill/uL (4.70-6.10)
[2024-07-12 19:58] LABS: ALT (SGPT) 21 U/L (8-55); AST (SGOT) 25 U/L (5-34); Albumin 2.8 g/dL (3.4-4.8); Alkaline Phosphatase 142 U/L (40-110); Anion Gap 22 mmol/L (10-20); BUN (Urea Nitrogen) 15 mg/dL (8.4-25.7); Bilirubin, Total 0.2 mg/dL (0.2-1.2); Calc. Creatinine Clearance 0 mL/min (70-130); Calcium 8.7 mg/dL (7.8-10.44); Carbon Dioxide 12 mmol/L (23-31); Chloride 116 mmol/L (98-107); Estimated GFR 73; Globulin 3.1 g/dL (2.4-3.5); Glucose 84 mg/dL (83-110); Potassium 3.9 mmol/L (3.5-5.1); Protein, Total 5.9 g/dL (5.8-8.1); Sodium 146 mmol/L (136-145)
[2024-07-12 20:13] LABS: Bacteria/HPF 2+ HPF (None Seen); Bilirubin Negative (Negative); Blood, Urine Negative (Negative); CAUTI Indications for Culture Alt mental st,lethar; Clarity Clear (Clear); Glucose, Urine (Dipstick) Normal (Negative); Ketone, Urine 80 mg/dL (Negative); Leukocyte 250 Leu/uL (Negative); Nitrite Negative (Negative); Protein, Urine (Dipstick) 20 mg/dL (Neg-Trace); RBC/HPF 0-3 HPF (0-3); Specific Gravity, Urine 1.022 (1.002-1.036); Squamous Epithelial 0-3 HPF (0-3); Urobilinogen Normal mg/dL (Less than 2); WBC/HPF 21-50 HPF (0-3); pH, Urine 5.5 (5.0-9.0)
[2024-07-12 20:15] LABS: Urine Culture Reflex Yes Yes
[2024-07-12] MEDS ORDERED: cefTRIAXone (ROCEPHIN) 2 GM VIAL ONE (20:31)
[2024-07-12] MEDS ORDERED: Sodium Chloride 0.9% 100 ML ONE (20:31)
[2024-07-12 20:46] LABS: Troponin I Less than 0.010 ng/mL (< 0.028)
[2024-07-12] MEDS ORDERED: Ondansetron ODT 4 MG TAB PO PRN (20:56)
[2024-07-12] MEDS ORDERED: Ondansetron PF 4 MG/2 ML Vial IVP PRN (20:56)
[2024-07-12] MEDS ORDERED: cefTRIAXone\\ROCEPHIN 1 GM in Sodium Chloride 0.9% 100 ML IVPB SCH (21:30)
[2024-07-12 23:17] LABS: Base Excess (BEa) -13.9 mEq/L (-2.0 to +3.0); Carboxyhemoglobin (COHb) 0.7 gm% (0.0-3.0); Hematocrit-ABG 39 % (42.0-52.0); Hemoglobin (Hb) 13.1 g/dL (14.0-18.0); O2 Tension (PaO2), arterial 117.4 mmHg (> 70.0); Potassium - ABG Lab 3.96 mmol/L (3.70-5.30); pH, Arterial 7.307 (7.35-7.45)
[2024-07-12] MEDS ORDERED: Lactated Ringer's 1,000 ML IV SCH (23:30)
[2024-07-12 23:38] LABS: CO2 Tension 20.9 mmHg (35.0-45.0)
[2024-07-12 23:39] LABS: ALV-art Gradient 56.115 mmHg (0-20); Actual Bicarbonate (HCO3a) 10.2 mEq/L (22-28); Puncture Site Right Brachial art
[2024-07-12] MEDS: KCL IV SCH (23:47)
[2024-07-12] MEDS: 1/2 NS W IV SCH (23:47)
[2024-07-12] MEDS: QUEtiapine 25 MG TAB PO SCH (23:47)
[2024-07-12] MEDS: Fleet Saline Enema 133 ML BOT PR SCH (23:47)
[2024-07-12] MEDS: D5 IV SCH (23:47)
[2024-07-13 00:25] LABS: Bacteria/HPF 1+ HPF (None Seen); Bilirubin Negative (Negative); Blood, Urine 1+ (Negative); CAUTI Indications for Culture Alt mental st,lethar; Clarity Clear (Clear); Glucose, Urine (Dipstick) Normal (Negative); Ketone, Urine 100 mg/dL (Negative); Leukocyte 500 Leu/uL (Negative); Nitrite Negative (Negative); Protein, Urine (Dipstick) 30 mg/dL (Neg-Trace); Specific Gravity, Urine 1.023 (1.002-1.036); Squamous Epithelial 0-3 HPF (0-3); Urobilinogen Normal mg/dL (Less than 2); WBC/HPF 21-50 HPF (0-3); pH, Urine 5.5 (5.0-9.0)
[2024-07-13] MEDS: Primidone 250 MG TAB PO SCH (00:27)
[2024-07-13] MEDS: Sodium Bicarbonate 150 MEQ in Dextrose 5% in Water 1,000 ML IV SCH (00:27)
[2024-07-13 05:34] LABS: #Basophils 0.04 10x3/uL (0.0-0.2); %Basophils 0.4 % (0.0-1.0); %Eosinophils 0.6 % (0.0-10.0); %Lymphocytes 8.1 % (21.0-51.0); %Neutrophils 83.6 % (42.0-75.0); Hematocrit 40.9 % (42.0-52.0); Mean Corpuscular HGB CONC 31.8 g/dL (32.0-36.0); Mean Corpuscular Hemoglobin 30.1 pg (27.0-31.0); Mean Corpuscular Volume 94.7 fL (78.0-98.0); Mean Platelet Volume 10.8 fL (7.4-10.4); Platelet Count 163 10x3/uL (130-400); RBC Distribution Width 19.5 % (11.5-14.5); Red Blood Cell (RBC) Count 4.32 mill/uL (4.70-6.10)
[2024-07-13 05:42] LABS: ALT (SGPT) 22 U/L (8-55); AST (SGOT) 25 U/L (5-34); Albumin 2.8 g/dL (3.4-4.8); Alkaline Phosphatase 146 U/L (40-110); Anion Gap 23 mmol/L (10-20); BUN (Urea Nitrogen) 12 mg/dL (8.4-25.7); Bilirubin, Total 0.2 mg/dL (0.2-1.2); Calc. Creatinine Clearance 99 mL/min (70-130); Calcium 8.8 mg/dL (7.8-10.44); Carbon Dioxide 11 mmol/L (23-31); Chloride 115 mmol/L (98-107); Estimated GFR 84; Globulin 3.6 g/dL (2.4-3.5); Glucose 89 mg/dL (83-110); Potassium 3.8 mmol/L (3.5-5.1); Protein, Total 6.4 g/dL (5.8-8.1); Sodium 145 mmol/L (136-145)
[2024-07-13] MEDS ORDERED: Levothyroxine Sodium 75 MCG TAB PO SCH (06:00)
[2024-07-13] MEDS: Levothyroxine Sodium 100 MCG TAB PO SCH (06:05)
[2024-07-13] MEDS ORDERED: Fluconazole 100 MG TAB PO SCH (09:00)
[2024-07-13] MEDS ORDERED: Doxycycline 100 MG in Sodium Chloride 0.9% 100 ML IVPB SCH (09:00)
[2024-07-13] MEDS: Mirabegron ER 25 MG ER.TAB PO SCH (10:14)
[2024-07-13] MEDS: Rivaroxaban 10 MG TAB PO SCH (10:14)
[2024-07-13] MEDS: Tamsulosin HCl 0.4 MG CAP PO SCH (10:15)
[2024-07-13] MEDS: Senokot S 8.6-50 MG TAB PO SCH (10:15)
[2024-07-13] MEDS: Colestipol 1 GM TAB PO SCH (10:15)
[2024-07-13] MEDS: Bisacodyl 5 MG TAB PO SCH (10:15)
[2024-07-13] MEDS: DorzolamidE/Timolol 2%/0.5% Ophth Soln 10 ml Bottle R EYE SCH (10:16)
[2024-07-13] MEDS: Pioglitazone HCl 15 MG TAB PO SCH (10:16)
[2024-07-13] MEDS: Polyethylene Glycol 3350 17 GM Packet PO SCH (10:16)
[2024-07-13] MEDS: Nystatin Cream 30 GM TUBE TOP SCH (10:16)
[2024-07-13] MEDS ORDERED: cefTRIAXone\\ROCEPHIN 1 GM in Sodium Chloride 0.9% 100 ML IVPB SCH (20:00)
[2024-07-13] MEDS: Latanoprost 0.005% Ophth Soln 2.5 ml Bottle R EYE SCH (21:58)
[2024-07-13] MEDS: cefTRIAXone\\ROCEPHIN 1 GM in Sodium Chloride 0.9% 100 ML IVPB SCH (22:00)
[2024-07-14 05:28] VITALS: BMI 34.2
[2024-07-14] MEDS: Sodium Chloride 0.9% 1,000 ML IV SCH (08:58)
[2024-07-14 11:00] LABS: #Basophils Less than 0.03 10x3/uL (0.0-0.2); %Basophils 0.3 % (0.0-1.0); %Eosinophils 5.3 % (0.0-10.0); %Lymphocytes 19.5 % (21.0-51.0); %Monocytes 8.4 % (0.0-10.0); %Neutrophils 66.3 % (42.0-75.0); Hematocrit 32.1 % (42.0-52.0); Hemoglobin 10.8 g/dL (14.0-18.0); Mean Corpuscular HGB CONC 33.6 g/dL (32.0-36.0); Mean Corpuscular Hemoglobin 30.6 pg (27.0-31.0); Mean Corpuscular Volume 90.9 fL (78.0-98.0); Mean Platelet Volume 10.6 fL (7.4-10.4); Platelet Count 133 10x3/uL (130-400); Red Blood Cell (RBC) Count 3.53 mill/uL (4.70-6.10)
[2024-07-14 11:33] LABS: Anion Gap 11 mmol/L (10-20); BUN (Urea Nitrogen) 6 mg/dL (8.4-25.7); Calc. Creatinine Clearance 129 mL/min (70-130); Calcium 7.8 mg/dL (7.8-10.44); Carbon Dioxide 21 mmol/L (23-31); Chloride 117 mmol/L (98-107); Estimated GFR 95; Glucose 94 mg/dL (83-110); Phosphorus 1.8 mg/dL (2.3-4.7); Sodium 146 mmol/L (136-145)
[2024-07-14] MEDS: OLANZapine 10 MG VIAL IM SCH ×3 (13:37→23:09)
[2024-07-14 14:14] VITALS: BMI 34.2
[2024-07-14] MEDS: QUEtiapine 25 MG TAB PO SCH (20:16)
[2024-07-14] MEDS: Sterile Water 10 ML VIAL FS SCH (23:00)
[2024-07-15] MEDS: Rivaroxaban 10 MG TAB PO SCH (09:33)
[2024-07-15 10:55] LABS: #Basophils 0.04 10x3/uL (0.0-0.2); %Basophils 0.4 % (0.0-1.0); %Lymphocytes 17.9 % (21.0-51.0); %Monocytes 11.1 % (0.0-10.0); %Neutrophils 67.3 % (42.0-75.0); Hematocrit 40.4 % (42.0-52.0); Hemoglobin 13.3 g/dL (14.0-18.0); Mean Corpuscular HGB CONC 32.9 g/dL (32.0-36.0); Mean Corpuscular Hemoglobin 30.5 pg (27.0-31.0); Mean Corpuscular Volume 92.7 fL (78.0-98.0); Mean Platelet Volume 11.1 fL (7.4-10.4); Platelet Count 162 10x3/uL (130-400); RBC Distribution Width 18.8 % (11.5-14.5); Red Blood Cell (RBC) Count 4.36 mill/uL (4.70-6.10)
[2024-07-15 11:10] LABS: Magnesium 1.5 mg/dL (1.6-2.6); Phosphorus 2.4 mg/dL (2.3-4.7)
[2024-07-15] MEDS: Potassium Phosphate 15 MMOL in Sodium Chloride 0.9% 250 ML 250 ML IVPB SCH (11:12)
[2024-07-15 11:22] LABS: Anion Gap 21 mmol/L (10-20); BUN (Urea Nitrogen) 4 mg/dL (8.4-25.7); Calc. Creatinine Clearance 132 mL/min (70-130); Carbon Dioxide 17 mmol/L (23-31); Chloride 112 mmol/L (98-107); Estimated GFR 96; Glucose 70 mg/dL (83-110); Sodium 146 mmol/L (136-145)
[2024-07-15 15:30] LABS: Magnesium 1.4 mg/dL (1.6-2.6); Phosphorus 2.6 mg/dL (2.3-4.7)
[2024-07-15] MEDS: Magnesium 2 GM/50 ML(in water) 2 GM in Premix 1 BAG IVPB SCH (16:20)
[2024-07-15] MEDS: Piperacillin/Tazobactam 3.375 GM in Sodium Chloride 0.9% 100 ML IVPB SCH ×2 (16:21→20:14)
[2024-07-16 05:40] LABS: Anion Gap 20 mmol/L (10-20); BUN (Urea Nitrogen) 4 mg/dL (8.4-25.7); Calc. Creatinine Clearance 124 mL/min (70-130); Calcium 8.7 mg/dL (7.8-10.44); Carbon Dioxide 18 mmol/L (23-31); Chloride 113 mmol/L (98-107); Estimated GFR 94; Glucose 81 mg/dL (83-110); Potassium 3.6 mmol/L (3.5-5.1); Sodium 147 mmol/L (136-145)
[2024-07-16 06:01] LABS: #Basophils Less than 0.03 10x3/uL (0.0-0.2); %Basophils 0.4 % (0.0-1.0); %Eosinophils 3.6 % (0.0-10.0); %Lymphocytes 20.4 % (21.0-51.0); %Monocytes 10.5 % (0.0-10.0); %Neutrophils 64.9 % (42.0-75.0); Hematocrit 42.8 % (42.0-52.0); Hemoglobin 14.4 g/dL (14.0-18.0); Mean Corpuscular HGB CONC 33.6 g/dL (32.0-36.0); Mean Corpuscular Hemoglobin 30.3 pg (27.0-31.0); Mean Corpuscular Volume 90.1 fL (78.0-98.0); Mean Platelet Volume 10.7 fL (7.4-10.4); Platelet Count 170 10x3/uL (130-400); RBC Distribution Width 18.6 % (11.5-14.5); Red Blood Cell (RBC) Count 4.75 mill/uL (4.70-6.10)
[2024-07-16] MEDS ORDERED: Sterile Water 10 ML VIAL FS PRN (20:45)
[2024-07-16] MEDS: Ziprasidone 20 MG VIAL IM SCH (21:09)
[2024-07-17] MEDS: Acetaminophen 325 MG TAB PO PRN (04:16)
[2024-07-17 07:20] LABS: #Basophils Less than 0.03 10x3/uL (0.0-0.2); %Basophils 0.4 % (0.0-1.0); %Eosinophils 2.9 % (0.0-10.0); %Lymphocytes 26.8 % (21.0-51.0); %Monocytes 11.5 % (0.0-10.0); %Neutrophils 58.2 % (42.0-75.0); Hematocrit 40.7 % (42.0-52.0); Hemoglobin 13.7 g/dL (14.0-18.0); Mean Corpuscular HGB CONC 33.7 g/dL (32.0-36.0); Mean Corpuscular Hemoglobin 30.3 pg (27.0-31.0); Mean Platelet Volume 10.5 fL (7.4-10.4); Platelet Count 171 10x3/uL (130-400); RBC Distribution Width 18.4 % (11.5-14.5); Red Blood Cell (RBC) Count 4.52 mill/uL (4.70-6.10)
[2024-07-17 08:02] LABS: Anion Gap 18 mmol/L (10-20); BUN (Urea Nitrogen) 5 mg/dL (8.4-25.7); Calc. Creatinine Clearance 129 mL/min (70-130); Calcium 8.8 mg/dL (7.8-10.44); Carbon Dioxide 18 mmol/L (23-31); Chloride 115 mmol/L (98-107); Estimated GFR 95; Glucose 87 mg/dL (83-110); Potassium 3.1 mmol/L (3.5-5.1); Sodium 148 mmol/L (136-145)
[2024-07-17] MEDS: Potassium Chloride 20 MEQ TAB PO SCH (08:57)
[2024-07-17] MEDS: Cyclobenzaprine 10 MG TAB PO PRN (09:12)
[2024-07-17 10:13] LABS: Magnesium 1.6 mg/dL (1.6-2.6)
[2024-07-17 10:38] LABS: Magnesium 1.6 mg/dL (1.6-2.6)
[2024-07-17] MEDS: Magnesium 2 GM/50 ML(in water) 2 GM in Premix 1 BAG IVPB SCH (11:49)
[2024-07-18] MEDS: hydrALAZINE 20 MG/ML VIAL SLOW IVP PRN (01:43)
[2024-07-18 05:25] LABS: #Basophils 0.04 10x3/uL (0.0-0.2); %Basophils 0.6 % (0.0-1.0); %Eosinophils 4.5 % (0.0-10.0); %Lymphocytes 20.3 % (21.0-51.0); %Monocytes 7.7 % (0.0-10.0); %Neutrophils 66.7 % (42.0-75.0); Hematocrit 42.9 % (42.0-52.0); Hemoglobin 14.5 g/dL (14.0-18.0); Mean Corpuscular HGB CONC 33.8 g/dL (32.0-36.0); Mean Corpuscular Volume 88.6 fL (78.0-98.0); Platelet Count 204 10x3/uL (130-400); RBC Distribution Width 18.5 % (11.5-14.5); Red Blood Cell (RBC) Count 4.84 mill/uL (4.70-6.10)
[2024-07-18 05:43] LABS: Anion Gap 16 mmol/L (10-20); BUN (Urea Nitrogen) 5 mg/dL (8.4-25.7); Calc. Creatinine Clearance 125 mL/min (70-130); Calcium 9.1 mg/dL (7.8-10.44); Carbon Dioxide 20 mmol/L (23-31); Chloride 117 mmol/L (98-107); Estimated GFR 95; Glucose 91 mg/dL (83-110); Sodium 149 mmol/L (136-145)
[2024-07-18 07:41] VITALS: BP 132/79; TEMP 98.1
[2024-07-18 11:02] LABS: Magnesium 2.1 mg/dL (1.6-2.6)
== END 2024-07-18 14:55 | DRG 689 ==
LOC: ERS 18:11 → 2NO 20:59 → OBSVTOIN 07-13 13:11 → T4-A 07-14 17:19
PROVIDERS: ADMIT Internal Medicine; ATTEND Student in an Organized Health Care Education/Training Program
PROC: 4A033R1 Measurement of Arterial Saturation, Peripheral, Percutaneous Approach (ICD-10-PCS; principal; 2024-07-12)
DX: N39.0 Urinary tract infection, site not specified (principal); G93.41 Metabolic encephalopathy; D68.59 Other primary thrombophilia; E87.20 Acidosis, unspecified; E87.0 Hyperosmolality and hypernatremia; I50.22 Chronic systolic (congestive) heart failure; E44.0 Moderate protein-calorie malnutrition; M48.062 Spinal stenosis, lumbar region with neurogenic claudication; E03.9 Hypothyroidism, unspecified; N40.0 Benign prostatic hyperplasia without lower urinary tract symptoms; R53.81 Other malaise; K59.00 Constipation, unspecified; I11.0 Hypertensive heart disease with heart failure; R13.10 Dysphagia, unspecified; E83.42 Hypomagnesemia; E83.39 Other disorders of phosphorus metabolism; Z68.34 Body mass index [BMI] 34.0-34.9, adult; Z79.899 Other long term (current) drug therapy; Z98.890 Other specified postprocedural states; Z88.8 Allergy status to other drugs, medicaments and biological substances; H70.90 Unspecified mastoiditis, unspecified ear
CPT/HCPCS: 36415; 36600; 51701; 70450; 70551; 71045; 74176; 80048; 80053; 81001; 82010; 82805; 83605; 83735; 83880; 84100; 84145; 84484; 85025; 87040; 87077; 87086; 87186; 93005; 93010; 96374; 97139; J0360; J0696; J2543; J3475; J3480; J3486; J7030; J7050; J7070

== ENCOUNTER 2024-07-21 06:39 | Emergency (ER) | payer MEDICARE ==
[2024-07-21 07:05] LABS: #Basophils 0.05 10x3/uL (0.0-0.2); %Basophils 0.8 % (0.0-1.0); %Eosinophils 4.4 % (0.0-10.0); %Lymphocytes 24.4 % (21.0-51.0); %Neutrophils 64.1 % (42.0-75.0); Hematocrit 42.3 % (42.0-52.0); Hemoglobin 13.7 g/dL (14.0-18.0); Mean Corpuscular HGB CONC 32.4 g/dL (32.0-36.0); Mean Corpuscular Hemoglobin 30.4 pg (27.0-31.0); Mean Corpuscular Volume 93.8 fL (78.0-98.0); Platelet Count 248 10x3/uL (130-400); RBC Distribution Width 18.1 % (11.5-14.5); Red Blood Cell (RBC) Count 4.51 mill/uL (4.70-6.10)
[2024-07-21 08:26] LABS: ALT (SGPT) 27 U/L (8-55); AST (SGOT) 54 U/L (5-34); Albumin 2.5 g/dL (3.4-4.8); Alkaline Phosphatase 123 U/L (40-110); Anion Gap 16 mmol/L (10-20); BUN (Urea Nitrogen) 6 mg/dL (8.4-25.7); Bilirubin, Total 0.4 mg/dL (0.2-1.2); Calc. Creatinine Clearance 0 mL/min (70-130); Calcium 8.5 mg/dL (7.8-10.44); Carbon Dioxide 26 mmol/L (23-31); Chloride 107 mmol/L (98-107); Estimated GFR 93; Globulin 3.5 g/dL (2.4-3.5); Glucose 88 mg/dL (83-110); Potassium 3.1 mmol/L (3.5-5.1); Sodium 146 mmol/L (136-145)
[2024-07-21 08:59] LABS: INR-International Normal Ratio 1.3; PTT 31.6 sec (22.9-36.1); Prothrombin Time 16.6 sec (12.0-14.7)
[2024-07-21] MEDS ORDERED: Iopamidol-370 76% 500 ML MDV (1 ML CHARGE) ONE (09:32)
[2024-07-21] MEDS ORDERED: Acetaminophen 500 MG TAB ONE (12:35)
== END 2024-07-21 13:05 | disposition home or self-care (01) ==
LOC: ERS 06:39
DX: S12.01XA Stable burst fracture of first cervical vertebra, initial encounter for closed fracture (principal); S22.019A Unspecified fracture of first thoracic vertebra, initial encounter for closed fracture; S01.01XA Laceration without foreign body of scalp, initial encounter; I10 Essential (primary) hypertension; E03.9 Hypothyroidism, unspecified; Z79.890 Hormone replacement therapy; Z79.82 Long term (current) use of aspirin; W06.XXXA Fall from bed, initial encounter
CPT/HCPCS: 36415; 70450; 70498; 71045; 72125; 72128; 72131; 80053; 83605; 85025; 85610; 85730; Q9967

== ENCOUNTER 2024-07-31 10:08 | Emergency (ER) | payer BC, MEDICARE ==
[2024-07-31] MEDS ORDERED: Iopamidol-370 76% 500 ML MDV (1 ML CHARGE) ONE (11:08)
[2024-07-31 12:36] LABS: #Basophils 0.07 10x3/uL (0.0-0.2); %Basophils 1.3 % (0.0-1.0); %Eosinophils 3.4 % (0.0-10.0); %Lymphocytes 31.3 % (21.0-51.0); %Neutrophils 55.8 % (42.0-75.0); Hematocrit 37.4 % (42.0-52.0); Mean Corpuscular HGB CONC 32.1 g/dL (32.0-36.0); Mean Corpuscular Hemoglobin 29.9 pg (27.0-31.0); Mean Platelet Volume 10.2 fL (7.4-10.4); Platelet Count 275 10x3/uL (130-400); RBC Distribution Width 17.2 % (11.5-14.5); Red Blood Cell (RBC) Count 4.02 mill/uL (4.70-6.10)
[2024-07-31 12:57] LABS: ALT (SGPT) 24 U/L (8-55); AST (SGOT) 38 U/L (5-34); Albumin 2.3 g/dL (3.4-4.8); Alkaline Phosphatase 155 U/L (40-110); Anion Gap 13 mmol/L (10-20); BUN (Urea Nitrogen) 13 mg/dL (8.4-25.7); Bilirubin, Total 0.2 mg/dL (0.2-1.2); Calc. Creatinine Clearance 0 mL/min (70-130); Calcium 8.1 mg/dL (7.8-10.44); Carbon Dioxide 26 mmol/L (23-31); Chloride 106 mmol/L (98-107); Estimated GFR 94; Globulin 3.3 g/dL (2.4-3.5); Glucose 79 mg/dL (83-110); Magnesium 1.8 mg/dL (1.6-2.6); Potassium 4.2 mmol/L (3.5-5.1); Protein, Total 5.6 g/dL (5.8-8.1); Sodium 141 mmol/L (136-145)
[2024-07-31 13:49] LABS: Troponin I Less than 0.010 ng/mL (< 0.028)
[2024-07-31 14:29] LABS: Bacteria/HPF None Seen HPF (None Seen); Bilirubin Negative (Negative); Blood, Urine Negative (Negative); CAUTI Indications for Culture Acute Hematuria; Clarity Clear (Clear); Glucose, Urine (Dipstick) Normal (Negative); Ketone, Urine 10 mg/dL (Negative); Leukocyte Negative Leu/uL (Negative); Nitrite Negative (Negative); Protein, Urine (Dipstick) Negative (Neg-Trace); RBC/HPF 0-3 HPF (0-3); Specific Gravity, Urine 1.004 (1.002-1.036); Squamous Epithelial 0-3 HPF (0-3); Urobilinogen Normal mg/dL (Less than 2); WBC/HPF 0-3 HPF (0-3); pH, Urine 5.5 (5.0-9.0)
[2024-07-31 14:31] LABS: Urine Culture Reflex No No
[2024-08-01] MEDS ORDERED: Ziprasidone 20 MG VIAL ONE (01:46)
[2024-08-01] MEDS ORDERED: Sterile Water 10 ML ONE (01:46)
== END 2024-08-01 13:36 ==
LOC: ERS 10:08
DX: R41.82 Altered mental status, unspecified (principal); K59.00 Constipation, unspecified; F03.90 Unspecified dementia, unspecified severity, without behavioral disturbance, psychotic disturbance, mood disturbance, and anxiety; I10 Essential (primary) hypertension; E03.9 Hypothyroidism, unspecified
CPT/HCPCS: 70450; 71045; 74177; 81001; 82962; 83735; 84484; 93005; 96372; 99285; J3486; Q9967; 36415; 36416; 80053; 84443; 85025